=== PATIENT | female | born 1975 | race Caucasian/White ===

== ENCOUNTER 2020-01-05 15:02 | Outpatient (CLI) | payer OTHER, SELFPAY ==
[2020-01-05 15:51] LABS: Alanine Aminotransferase 27 U/L (4-35); Albumin Level 4.7 g/dL (3.5-5.1); Alkaline Phosphatase 71 U/L (38-126); Aspartate Amino Transferase 23 U/L (14-36); Bilirubin,Total 0.5 mg/dL (0.2-1.3); Blood Urea Nitrogen 13 mg/dL (7-17); Calcium 10.1 mg/dL (8.4-10.2); Carbon Dioxide 27 mmol/L (22-30); Chloride 99 mmol/L (98-107); Cholesterol 157 mg/dL (0-200); Estimated Glomerular Filt Rate > 60; Glucose 80 mg/dL (65-105); HDL Direct 50 mg/dL; Potassium 4.3 mmol/L (3.4-5.0); Sodium 137 mmol/L (137-145); Triglycerides 98 mg/dL (<150)
[2020-01-05 16:01] LABS: LDL Cholesterol Direct 88 mg/dL
[2020-01-05 17:08] LABS: MALB Creatinine Ratio < 3.1 mg/g (0-30); Microalbumin Urine Random < 6.0 mg/L (0-16.7)
== END 2020-01-05 15:03 | disposition home or self-care (01) ==
PROVIDERS: PCP Internal Medicine; Visit Provider Physician Assistant
DX: E78.5 Hyperlipidemia, unspecified (principal); E03.9 Hypothyroidism, unspecified; E10.65 Type 1 diabetes mellitus with hyperglycemia
CPT/HCPCS: 36415; 80053; 80061; 82043

== ENCOUNTER 2020-09-12 15:50 | Outpatient (CLI) | payer OTHER, SELFPAY ==
[2020-09-12 18:04] LABS: Free T4 Free Thyroxine 0.88 ng/mL (0.78-2.19)
== END 2020-09-12 15:51 | disposition home or self-care (01) ==
LOC: ANHLAB 15:52
PROVIDERS: PCP Family Medicine; Visit Provider Physician Assistant
DX: E03.9 Hypothyroidism, unspecified (principal)
CPT/HCPCS: 36415; 84439; 84443

== ENCOUNTER 2020-11-15 16:02 | Emergency (ER) | payer OTHER, SELFPAY ==
[2020-11-15 16:18] VITALS: BP 104/57; PULSE 79; RESP 16; TEMP 35.9; O2SAT 99
--- NOTE | 2020-11-15 16:40 | ED.FEMALEGU ---
HPI - Female Genitourinary General Chief complaint: Urogenital-Female Stated complaint: BURNING URINATION Time Seen by Provider: 11/15/20 16:32 Source: patient and RN notes reviewed Mode of arrival: ambulatory Limitations: no limitations History of Present Illness HPI Narrative: Patient presents today complaining of dysuria, hematuria, frequency, urgency, and lower abdominal cramping x4 days. Denies fever, back pain. Reports history of frequent UTIs, but states she has not had an infection for approximately a year. She has tried no fmjl-[id number] treatment prior to arrival. MD elicited complaint: dysuria Related Data Home Medications Medication Instructions Recorded Confirmed aspirin 81 mg tablet,delayed 81 mg PO DAILY 10/05/19 11/15/20 release fluoxetine 20 mg capsule 40 mg PO DAILY cap 10/05/19 11/15/20 gabapentin 400 mg capsule 400 mg PO QID 10/05/19 11/15/20 Calcium 600 1 tab-cap PO DAILY 11/30/19 11/15/20 ergocalciferol (vitamin D2) 50,000 unit PO WEEKLY 11/30/19 11/15/20 atorvastatin 20 mg tablet 20 mg PO QPM tablet 03/08/20 11/15/20 blood sugar diagnostic #10 each 03/08/20 09/12/20 subcutaneous insulin pump #1 each 03/08/20 09/12/20 insulin syringe-needle U-100 0.3 #10 each 09/12/20 09/12/20 mL 31 gauge x 04/08 yfnverjymitg-zgg-ftmw-FA-vit K 1 tablet PO DAILY 11/15/20 11/15/20 [Adults Multivitamin] ondansetron 8 mg PO Q8H PRN 11/15/20 11/15/20 Allergies Allergy/AdvReac Type Severity Reaction Status Date / Time fentanyl AdvReac Mild ITCHING Verified 11/15/20 16:17 WITH EPIDURAL FENTANYL DOSE Review of Systems Review of Systems: Narrative: CONSTITUTIONAL: Denies body aches, fever, chills, or sweats. EYES: Denies visual changes, redness, or discharge. ENT: Denies rhinorrhea, congestion, sore throat, or otalgia. CARDIOVASCULAR: Denies chest pain, palpitations, or edema. RESPIRATORY: Denies cough or dyspnea. GASTROINTESTINAL: Denies abdominal pain, nausea, vomiting, or diarrhea. GENITOURINARY:+ Dysuria, hematuria, frequency, urgency, lower abdominal cramping. SKIN: Denies rash, itching, or wounds. MUSCULOSKELETAL: Denies back pain, joint pain, or myalgia. NEUROLOGIC: Denies headache, numbness, tingling, or weakness. PSYCH: Denies depression or anxiety. [facility] Family History Family History Mother Family history of thyroid disease Depression Family history of kidney disease Family history of chronic obstructive pulmonary disease Family history of diabetes mellitus in first degree relative Hypertension Family history of elevated blood lipids Sibling Family history of thyroid disease Family history of kidney disease Family history of diabetes mellitus in first degree relative Father Family history of diabetes mellitus in first degree relative Grandparent Cerebrovascular accident Other Diabetes mellitus Family history of arthritis Family history of blood dyscrasia Family history of gout Family history of malignant neoplasm of male breast Social History Social History Smoking status: Former smoker Second hand tobacco smoke exposure: No Smoking end date: 11/24/08 Alcohol intake: never Gender identity (if verbalized by the patient): Female Comments At time of signature, I have reviewed and agree with nursing past medical, surgical, social and family history unless otherwise noted. Please see nursing chart for further information. There is no relevant family history pertinent to the presenting complaint Exam Narrative: Exam Narrative: GENERAL: Well-appearing, well-nourished, and in no acute distress. HEAD: Normocephalic, atraumatic. EYES: EOMI. No redness or drainage. Conjunctivae normal. ENT: Mucous membranes pink and moist. NECK: Normal AROM. CHEST: No respiratory distress. Clear to auscultation. HEART: Regular rate a
== END 2020-11-15 16:57 | disposition home or self-care (01) ==
PROVIDERS: Emergency Provider Nurse Practitioner; PCP Family Medicine
DX: N30.01 Acute cystitis with hematuria (principal); Z79.82 Long term (current) use of aspirin; Z79.4 Long term (current) use of insulin; Z87.891 Personal history of nicotine dependence; E78.00 Pure hypercholesterolemia, unspecified; I10 Essential (primary) hypertension; Z86.2 Personal history of diseases of the blood and blood-forming organs and certain disorders involving the immune mechanism; E10.40 Type 1 diabetes mellitus with diabetic neuropathy, unspecified
CPT/HCPCS: 81003; 87077; 87086; 87088; 87186; 99213; G0463

== ENCOUNTER 2021-06-13 15:14 | Outpatient (CLI) | payer OTHER, SELFPAY ==
[2021-06-13 17:00] LABS: Creatinine Urine 115.5 mg/dL
[2021-06-13 17:02] LABS: Anion Gap 8 mmol/L (8-16); Blood Urea Nitrogen 16 mg/dL (7-17); Calcium 9.9 mg/dL (8.4-10.2); Carbon Dioxide 30 mmol/L (22-30); Chloride 100 mmol/L (98-107); Estimated Glomerular Filt Rate > 60; Glucose 186 mg/dL (65-110); HDL Direct 62 mg/dL; Potassium 4.7 mmol/L (3.4-5.0); Sodium 138 mmol/L (137-145)
[2021-06-13 17:17] LABS: LDL Cholesterol Direct 88 mg/dL; MALB Creatinine Ratio < 5.2 mg/g (0-30); Microalbumin Urine Random < 6.0 mg/L (0-16.7)
[2021-06-16 07:25] LABS: C-Peptide <0.10 ng/mL (0.80-3.85)
== END 2021-06-13 15:15 | disposition home or self-care (01) ==
LOC: ANHWCLAB 15:15
PROVIDERS: PCP Family Medicine; Visit Provider Internal Medicine Endocrinology, Diabetes & Metabolism
DX: E03.9 Hypothyroidism, unspecified (principal); E10.65 Type 1 diabetes mellitus with hyperglycemia
CPT/HCPCS: 36415; 80048; 82043; 83718; 83721; 84439; 84443; 84681

== ENCOUNTER 2022-04-15 15:49 | Outpatient (CLI) | payer OTHER, SELFPAY ==
[2022-04-15 17:01] LABS: Anion Gap 8 mmol/L (8-16); Blood Urea Nitrogen 14 mg/dL (7-17); Calcium 9.2 mg/dL (8.4-10.2); Carbon Dioxide 27 mmol/L (22-30); Chloride 102 mmol/L (98-107); Estimated Glomerular Filt Rate > 60; Glucose 156 mg/dL (65-110); HDL Direct 58 mg/dL; Potassium 4.3 mmol/L (3.4-5.0); Sodium 137 mmol/L (137-145)
[2022-04-15 17:14] LABS: Creatinine Urine 230.2 mg/dL
[2022-04-15 17:17] LABS: MALB Creatinine Ratio 5.1 mg/g (0-30); Microalbumin Urine Random 11.8 mg/L (0-16.7)
[2022-04-15 17:20] LABS: LDL Cholesterol Direct 88 mg/dL
== END 2022-04-15 15:50 | disposition home or self-care (01) ==
LOC: ANHWCLAB 15:50
PROVIDERS: PCP Family Medicine; Visit Provider Internal Medicine Endocrinology, Diabetes & Metabolism
DX: E03.9 Hypothyroidism, unspecified (principal); E10.65 Type 1 diabetes mellitus with hyperglycemia; E78.5 Hyperlipidemia, unspecified; Z46.81 Encounter for fitting and adjustment of insulin pump; Z71.3 Dietary counseling and surveillance
CPT/HCPCS: 36415; 80048; 82043; 83718; 83721; 84443

== ENCOUNTER 2024-12-31 11:19 | Outpatient (CLI) | payer OTHER, SELFPAY ==
--- OUTSIDE RECORDS SUMMARY | 2024-12-31 11:54 | XMS_ITS | Patient Health Summary ---
Author Organization [facility] Address [address] [place] [address] Care Team Providers Care Operating System Programmer Name Role Phone Zia Medellin MD Primary Care Provider [phone] Note from [facility],non-owned Affiliates and Associated Physician Practices is amultiple site organization consisting of ambulatory clinics and hospital sitesin [place], [place], [place] and [place]. This disclosure is being madepursuant to the Care Everywhere program and may not contain all information available regarding this patient. Last updated 18.[facility] [employer] Allergies No known active allergies Medications * Be aware that medications may not be up to date on this document. Alwaysverify current medications with the patient. * atorvastatin (LIPITOR) 20 MG tablet(Started 02/15/2018) TK 1 T PO D 5 refills left * FLUoxetine (PROZAC) 20 MG capsule(Started 02/13/2018) TK 1 C PO QD 4 refills left * gabapentin (NEURONTIN) 400 MG capsule(Started 02/14/2018) 3 refills left * APIDRA vial(Started 02/09/2018) INJ 130-150 UNITS VIA INSULIN PUMP D * levothyroxine (SYNTHROID) 150 MCG tablet(Started 02/19/2018) TK 1 T PO D IN THE MORNING 1 refill left * lisinopril (PRINIVIL;ZESTRIL) 5 MG tablet(Started 02/15/2018) TK 1 T PO D 1 refill left * naproxen (NAPROSYN) 500 MG tablet(Started 02/07/2018) TK 1 T PO BID 5 refills left * betamethasone dipropionate 0.05 % lotion(Started 03/02/2018) Apply to affected area 2 times daily Apply to itching area on scalp and feet twice daily. 30 days supply. 1 refill remaining * hydrocortisone (HYTONE) 2.5 % cream(Started 03/02/2018) Apply to affected area 2 times daily as needed Apply next to nose twice daily as needed after wash with nizoral shampoo. 30 days supply. 1 refill remaining * betamethasone dipropionate 0.05 % lotion(Started 07/20/2018) Apply to itchy spots twice daily PRN. 30 days supply. Must be Fougera or [place]err[place] of [employer] [employer] or Taro 3 refills remaining * ketoconazole (NIZORAL) 2 % shampoo(Started 07/20/2018) Apply to wet hair daily. 30 days supply. Must be Perrigo or [facility] [employer] [facility] 11 refills remaining Active Problems No known active problems Social History Tobacco Use Types Packs/Day Years Used Date Smoking Tobacco: Former Smokeless Tobacco: Never Alcohol Use Standard Drinks/Week Comments No 0 (1 standard drink = 0.6 oz pur e alcohol) Sex and Gender Information Value Date Recorded Sex Assigned at Not on file Gender Identity Not on file Sexual Orientation Not on file Procedures * SD BIOPSY OF SKIN LESION(Performed 07/21/2018) Performed for Neoplasm of uncertain behavior of skin * DERMATOPATHOLOGY(Performed 07/20/2018) Performed for Neoplasm of uncertain behavior of skin * SD ALLERGY PATCH TESTS(Performed 07/13/2018) Performed for Allergic contact dermatitis, unspecified trigger * IMAGING/RADIOLOGY/XRAY RESULTS ORDER(Performed 01/02/2016) * MRI SHOULDER LEFT WO CONTRAST(Performed 12/26/2015) Performed for Left shoulder pain Results * SD BIOPSY OF SKIN LESION (07/21/2018 11:21 AM CDT) Narrative Colton Koo MD - 07/21/2018 11:21 AM CDT Simon Hernandes MD 07/21/2018 9:51 AM Risks, benefits and alternatives to shave biopsy were discussed with the patient. Verbal consent obtained. Location: Lower central back Skin prep: Alcohol Anesthesia: 1% lidocaine with epinephrine Hemostasis: Aluminum Chloride Dressing and wound care discussed. Patient agrees to phone call for results and message if not available. Simon Hernandes MD Dermatology Resident, PGY-2 07/21/2018 9:51 AM Colton Koo MD PROCEDURE/MINOR SURG ICAL ORDERABLES * DERMATOPATHOLOGY (07/20/2018 12:00 AM CDT) Case Report Dermatopathology Report Case: [id number] Authorizing Provider: Colton Koo MD Collected: 07/20/2018 12:00 AM Ordering Location: [facility] Received: 07/21/2018 07:56 AM Dermatology Pathologist: Jeanette Zhang MD Specimen: Skin, central lower back 1:34 PM CDT DERMATOPATHOLOGY LABORATORY Final Diagnosis Specimen A. SKIN, central lower back: INTRADERMAL MELANOCYTIC NEVUS WITH CONGENITAL FEATURES (D22.9) 1:34 PM CDT DERMATOPATHOLOGY LABORATORY Clinical History Nevus. 1:34 PM CDT DERMATOPATHOLOGY LABORATORY Gross Description Specimen A: Received is one formalin filled container labeled with the patient's name and designated central lower back. The specimen consists of a shave biopsy measuring [id number], bisected. Jar 0. 1:34 PM CDT DERMATOPATHOLOGY LABORATORY Microscopic Description Specimen A. SKIN, central lower back: There are nests of cytologically bland melanocytes within the dermis. Some of these melanocytes are concentrated around blood vessels and adnexal structures. 1:34 PM CDT DERMATOPATHOLOGY LABORATORY Disclaimer An external and internal positive and negative controls are appropriate for the histochemical, immunohistochemical and immunofluorescence stain(s) in this case (if any), except where stated explicitly. The performance characteristics of the stain(s) cited in this report were developed and its performance characteristic determined by the Dermatopathology Laboratory at [facility]. These tests need not be, and therefore are not, approved by the [place] Food and Drug Administration. The tests are used for clinical purposes. Billing Codes Specimen Charges Stain Charges 42693 1 1:34 PM CDT DERMATOPATHOLOGY LABORATORY Embedded Images 1:34 PM CDT DERMATOPATHOLOGY LABORATORY Pathology/Cytolog y TISSUE SPECIMEN FROM SKIN / Unknown 07/20/2018 07/21/2018 7:56 AM CDT Colton Koo MD LAB - PATHOLOGY/CYTO LOGY ORDERABLES DERMATOPATHOLOGY LABORATORY [facility] - Department of Dermatology [address] [place] [address], [facility] [phone] * SD ALLERGY PATCH TESTS (07/13/2018 3:54 PM CDT) Narrative Kortney García - 07/13/2018 3:54 PM CDT Kortney García 07/13/2018 3:54 PM Patient here today for patch testing per order Janiya Koo MD. Patch test(s) to be tested: (Series /Quantity) NACDG / 80 Cosmetic / 40 Gold / 1 Patches applied to patient as shown in Annotated Imaging. ARIC Chávez Colton Koo MD PROCEDURE/MINOR SURG ICAL ORDERABLES * IMAGING/RADIOLOGY/XRAY RESULTS ORDER (01/02/2016 9:54 PM PHYSICAL TESTING SUPERVISOR) Anatomical Region Laterality Modality Other Narrative 01/02/2016 9:54 PM PHYSICAL TESTING SUPERVISOR Ordered by an unspecified provider. Scanned Document IMAGING * MRI SHOULDER WO CONT LEFT (12/26/2015 2:01 PM PHYSICAL TESTING SUPERVISOR) Anatomical Region Laterality Modality Upper Extremity Magnetic Resonan ce 12/26/2015 3:09 PM PHYSICAL TESTING SUPERVISOR Impressions 12/26/2015 3:20 PM PHYSICAL TESTING SUPERVISOR Supraspinatus and subscapularis tendinitis/tendinosis with superimposed high-grade partial thickness tearing of the distal supraspinatus tendon at its insertion. Small joint effusion and subacromial/subdeltoid bursal effusion. Edited by Genie Aburto on 12/26/2015 3:20 PM Narrative 12/26/2015 3:20 PM PHYSICAL TESTING SUPERVISOR MRI LEFT SHOULDER WITHOUT CONTRAST Indication: Left shoulder pain Technique: Multiplanar, multisequence magnetic resonance imaging of the left shoulder performed without contrast Comparison: None Findings: The study is limited by patient motion. Within this limitation, there is tendinitis/tendinosis involving the supraspinatus and subscapularis tendons with superimposed high-grade partial thickness tearing of the distal supraspinatus tendon near its insertion. A retracted full-thickness tear is not identified. There is a small joint effusion and small subacromial/subdeltoid bursal effusion. Infraspinatus and teres minor tendons are intact and unremarkable. There is tendinitis/tendinosis affecting the long of the biceps tendon which is appropriately positioned in the bicipital groove. Significant hypertrophic or erosive degenerative changes are not identified at the glenohumeral joint or the acromioclavicular joint. There is no fracture, dislocation or marrow infiltrative process. There is degenerative signal within the cartilaginous labrum. A discrete labral tear is not identified. Procedure Note Fredi Lopez MD - 12/26/2015 MRI LEFT SHOULDER WITHOUT CONTRAST Indication: Left shoulder pain Technique: Multiplanar, multisequence magnetic resonance imaging of the left shoulder performed without contrast Comparison: None Findings: The study is limited by patient motion. Within this limitation, there is tendinitis/tendinosis involving the supraspinatus and subscapularis tendons with superimposed high-grade partial thickness tearing of the distal supraspinatus tendon near its insertion. A retracted full-thickness tear is not identified. There is a small joint effusion and small subacromial/subdeltoid bursal effusion. Infraspinatus and teres minor tendons are intact and unremarkable. There is tendinitis/tendinosis affecting the long of the biceps tendon which is appropriately positioned in the bicipital groove. Significant hypertrophic or erosive degenerative changes are not identified at the glenohumeral joint or the acromioclavicular joint. There is no fracture, dislocation or marrow infiltrative process. There is degenerative signal within the cartilaginous labrum. A discrete labral tear is not identified. IMPRESSION Supraspinatus and subscapularis tendinitis/tendinosis with superimposed high-grade partial thickness tearing of the distal supraspinatus tendon at its insertion. Small joint effusion and subacromial/subdeltoid bursal effusion. Edited by Genie Aburto on 12/26/2015 3:20 PM Charanjit Yanez MD MR ORDERABLES Care Teams Operating System Programmer Relationship Specialty Start Date End Date Zia Medellin MD [address] [place] [address] [address] [place] [id number] PCP - General Family Medicine 12/26/15
--- OUTSIDE RECORDS SUMMARY | 2024-12-31 11:54 | XMS_ITS | Continuity of Care Document ---
Author Organization [place] [facility], [facility] [place] Address [address] [place] [address] Care Team Providers Care Digital Sales Planner Name Role Phone HOOD CAMARA Primary Care Provider HOOD CAMARA Referring Provider Assessment Encounter Date Assessment Date Assessment LastModified by Organization Details LastModified Time 12/31/2024 12/31/2024 The patient has right shoulder pain she does have significant AC joint arthrosis with subacromial spurring likely causing impingement subacromial space may be mildly narrowed. We talked about this in detail today she states she may have a diagnosis of a previous rotator cuff tear she is going to get us that report and films if possible we will take a look at that when she gets that to us. In the meantime we are going to get her started with a course of physical therapy, she declined cortisone and oral prednisone because of her blood sugar issues we are somewhat limited we can do with that. We will get her started on naproxen 500 mg b.i.d. with food I will see her in 1 month to see how she is doing if her symptoms continue to be significant an MRI scan may be indicated we will see what the other old results show as well. She voiced understanding and agreed with the above plan she will call for any further problems difficulties or questions. [email or web address] Not available 12/31/2024 12:01:11 Plan of Treatment Reminders Order Date Submit Date Provider Last Modified By Organization Details Last Modified Time Details Appointments Any 5 2024 10:30A M GIOVANNA Pollard Not available Not available Not available Any 15 2024 01:30P Sharad Taveras MD Not available Not available Not available Any 5 2024 02:30P M GIOVANNA Pollard Not available Not available Not available Follow Up 30 2024 02:30P M GIOVANNA Knxo Not available Not available Not available Lab None recorded. Referral physical therapist referral - Please contact patient to schedule 2024 025 [facility] [place], [address], [place], [address], 12/31/2024 12:25:24 Procedures None recorded. Surgeries None recorded. Imaging XR, shoulder 2024 025 [email or web address] [facility] [place], [address], [place], [address], 12/31/2024 12:03:30 Medication Orders naproxen 500 mg tablet 2024 025 [email or web address] [id number], [address], [place], [id number], 12/31/2024 12:03:30 Patient TargetsNo targets recorded. Patient InstructionsNo instructions recorded. Reason for Referral Physical Therapist Referral for Pain of right shoulder joint Please contact patient to schedule Referring Physician: Allan Morales, Orthopedic Surgery, Encounter Date: 12/31/2024 Results Created Date Observation Date Name Description Value Unit Range Abnormal Flag Note LastModifiedBy Organization Detail LastModifiedTime 12/31/19 25 XR, shoul annemarie No observ ation record ed. [email or web address] [facility] [place] [address], [place], [address], 12/31/2024 12:01:57 Result Notes None recorded. Problems Name Problem SNOMED Code Status Onset Date Resolution Date Notes Provider Name and Address Organization Details Recorded Time Hypertensi ve disorder 15556044 Active Not Available [facility] 01:36:26 Neuropathy 718549948 Active Not Available [facility] 4 01:36:26 Menorrhagi a 482476064 Active Not Available [facility] 4 01:36:26 Hypothyroi dism 38143380 Active Not Available [facility] 4 01:36:26 Tinea capitis 4073559 Active Not Available [facility] 4 01:36:27 Hyperlipid emia 10649713 Active Not Available [facility] 4 01:36:27 Diabetes mellitus 24723146 Active Not Available [facility] 4 01:36:27 Mixed anxiety and depressive disorder 238841500 Active 2022 Not Available [facility] 4 01:36:26 Vitamin D below reference range 442161303 Active 2023 GIOVANNA Knox [address], [place], [address] , [facility] 4 16:01:39 Periodic limb movement disorder 490928477 Active 2023 Gerard Taveras MD [address], [place], [address] , [facility] [facility] 4 11:54:45 Obstructiv e sleep apnea syndrome 31603418 Active 2023 Gerard Taveras MD [address], [address], [place], [address] , [employer] [facility] 4 11:55:27 Iron deficiency 98728982 Active 2023 Gerard Taveras MD [address], [place], [address] , [employer] [facility] 4 15:04:09 Vitamin B12 deficiency (non anemic) 33045949 Active 2023 Gerard Taveras MD [address], [place], [address] , [facility] 4 15:04:18 Rupture of rotator cuff of right shoulder 8863331981391 9103 Active 2024 GIOVANNA Knox [address], [place], [address] , [facility] [employer] [facility] [employer] [facility] 5 16:24:06 Nausea 184440468 Active 2024 GIOVANNA Knox [address], [address], [place], [address] , [facility] [employer] [facility] 5 16:24:48 Pain of right shoulder joint 8561066340627 9100 Active 2024 Ingrid Hebert CNA null, [facility] [employer] [facility] 5 11:32:47 Osteoarthr itis of right acromiocla vicular joint 9701230426178 104 Active 2024 GIOVANNA Pollard [address], [address], [place], [address] , [facility] [employer] [facility] 5 12:02:13 Impingemen t syndrome of right shoulder region 8904274983142 02 Active 2024 GIOVANNA Pollard [address], [place], [address] , [facility] [employer] [facility] [employer] [facility] 5 12:02:20 Tendinitis of right rotator cuff 9997507320552 9104 Active 2024 GIOVANNA Pollard [address] [place] [address], [place], [address] , [facility] [employer] [facility] [employer] [facility] 5 12:02:33 Notes:Medical History: Anxie ty/Depression Tinea capitis Rhinitis Bruxism Obesity with severe OSHS, HI = 31, 03/23/24, on CPAP c/o IVRC Hypothyroidism Hyperlipidemia Hypertension T2DM with neuropathy PLMD Iron deficiency Vit B12 deficiency Vit D deficiency Low back pain Procedure History: T&A 1981 Appendectomy 1989 1997 Tubal ligation 1997 Left CTS release surgery 2004 Right CTS release surgery 2006 Bilateral knee arthroscopies 2010 Cholecystectomy 2018 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 Procedures Surgical History Date Name Laterality Status Provider Name and Address Organization Details Recorded Time Appendectomy completed Jesica Ureña MA [facility] [employer] 12/24/2023 15:41:00 Carpal tunnel surgery completed Jesica Ureña MA [facility] 12/24/2023 15:41:11 Gallbladder Surgery completed Jesica Ureña MA [facility] 12/24/2023 15:41:24 Tubal Ligation completed Jesica Ureña MA [facility] 12/24/2023 15:41:31 section completed Cornelius Ureña MA [facility] 12/24/2023 15:41:48 Knee arthroscopy/surge ry completed Jesica Ureña MA [facility] 12/24/2023 15:42:09 Imaging Results Imaging Date Name Status LastModified by Organiz ation Details LastModified Time 12/31/2024 XR, shoulder completed [email or web address] [facility] [place] [address], [place], [address], 12/31/2024 12:01:57 Procedure Notes None recorded. Medical Equipment None Reported. Allergies No known drug allergies Medications Name Sig Start Date Stop Date Status Note LastModified by Organization Details LastModified Time fluoxetine 40 mg capsule TAKE 1 CAPSULE BY MOUTH EVERY DAY active Not Available Not Available No t Available amoxicillin 500 mg capsule TAKE 1 THREE TIMES DAILY UNTILL GONE 12/28 completed Not Available Not Available Not Available Mirena 21 mcg/24 hr (up to 8 years) 52 mg intrauterin e device 12/24 completed Not Available Not Available Not Available fluconazole 100 mg tablet TK 1 T PO QD FOR 5 DAYS 12/10 completed Not Available Not Available Not Available clotrimazol e 10 mg isael Take 1 tablet 4 times a day by oral route. active Not Available Not Available No t Available promethazin e-DM 6.25 mg-15 mg/5 mL oral syrup TK 5 ML PO Q 4 H PRF COUGH 07/13 completed Not Available Not Available Not Available venlafaxine ER 75 mg capsule,ext ended release 24 hr TK ONE C PO QD active Not Available Not Available No t Available atorvastati n 20 mg tablet TAKE 1 TABLET BY MOUTH EVERY EVENING active Not Available Not Available No t Available ketoconazol e 2 % shampoo APPLY TO THE AFFECTED AREA(S), LATHER, LEAVE IN PLACE FOR 5 MINUTES, AND THEN RINSE OFF WITH WATER BY TOPICAL ROUTE ONCE DAILY active Not Available Not Available No t Available Vitamin C 500 mg tablet TAKE 1 TABLET BY MOUTH TWICE DAILY. active Not Available Not Available No t Available cetirizine 10 mg tablet TAKE 1 TABLET BY MOUTH ONCE DAILY 01/21 completed Not Available Not Available Not Available azithromyci n 250 mg tablet TAKE 2 TABLETS BY MOUTH FOR 1 DAY THEN TAKE 1 TABLET BY MOUTH DAILY FOR 4 DAYS 12/24 completed Not Available Not Available Not Available ibuprofen 800 mg tablet TAKE 1 TABLET BY MOUTH EVERY 8 HOURS WITH FOOD NEEDED 12/28 completed Not Available Not Available Not Available Glucagon Emergency Kit 1 mg solution for injection INJECT 1MG UNDER THE SKIN ONCE 12/25 completed Not Available Not Available Not Available fluconazole 150 mg tablet TAKE 1 TABLET BY MOUTH 1 TIME 12/25 completed Not Available Not Available Not Available benzonatate 200 mg capsule TAKE 1 CAPSULE BY MOUTH THREE TIMES DAILY NEEDED FOR COUGH 12/24 completed Not Available Not Available Not Available hydrocodone 5 mg-acetamin ophen 325 mg tablet TK 1 TO 2 TS PO Q 6 H PRN P 07/13 completed Not Available Not Available Not Available hydrocortis one 1 % topical ointment APPLY AA BID 08/24 completed Not Available Not Available Not Available ondansetron HCl 8 mg tablet TAKE 1 TABLET BY MOUTH EVERY 8 HOURS NEEDED 01/11 completed Not Available Not Available Not Available fluconazole 200 mg tablet 05/11 completed Not Available Not Available Not Available ondansetron HCl 4 mg tablet active Not Available Not Available Not Available gabapentin 400 mg capsule TK 1 C PO QAM AND 1 C AT NOON AND 2 CS QPM active Not Available Not Available No t Available clobetasol 0.05 % topical cream APPLY A THIN LAYER TO THE AFFECTED AREA(S) BY TOPICAL ROUTE 2 TIMES PER DAY 12/25 completed Not Available Not Available Not Available cyanocobala min (vit B-12) 1,000 mcg tablet Take 1 tablet 3 times a week by oral route. 2023 active Not Available Not Available Not Avai lable Accu-Chek Softclix Lancets U 1 LANCET TO CHECK BLOOD SUGAR QID 12/25 completed Not Available Not Available Not Available penicillin V potassium 500 mg tablet TAKE 1 TABLET BY MOUTH FOUR TIMES DAILY FOR 10 DAYS 09/27 completed Not Available Not Available Not Available lidocaine HCl 2 % mucosal jelly Take 200 mg by mucous route. 07/13 completed Not Available Not Available Not Available acetaminoph en 300 mg-codeine 30 mg tablet TAKE 1 TABLET BY MOUTH EVERY 4-6 HOURS NEEDED FOR PAIN 12/28 completed Not Available Not Available Not Available levofloxaci n 250 mg tablet Take 1 tablet every day by oral route for 5 days. active Not Available Not Available No t Available ciprofloxac in 500 mg tablet TAKE 1 TABLET BY MOUTH EVERY 12 HOURS FOR 5 DAYS 12/25 completed Not Available Not Available Not Available sulfamethox azole 800 mg-trimetho prim 160 mg tablet TAKE 1 TABLET BY MOUTH TWICE DAILY FOR 10 DAYS 05/15 completed Not Available Not Available Not Available tramadol 50 mg tablet TAKE 1 TABLET BY MOUTH EVERY 8 HOURS NEEDED 12/28 completed Not Available Not Available Not Available triamcinolo ne acetonide 0.1 % topical cream APPLY EXTERNALL Y TO THE AFFECTED AREA TWICE DAILY 12/25 completed Not Available Not Available Not Available ondansetron 8 mg disintegrat ing tablet Place 1 tablet twice a day by transling ual route for 30 days, for nausea. 2024 active Not Available Not Available Not Avai lable amoxicillin 875 mg tablet TAKE 1 TABLET BY MOUTH THREE TIMES DAILY 12/24 completed Not Available Not Available Not Available ciprofloxac in 0.3 % eye drops INSTILL 1 DROP IN AFFECTED EYE(S) EVERY 4 HOURS FOR 7 DAYS. ADMINISTE R WHILE AWAKE 12/24 completed Not Available Not Available Not Available benzonatate 100 mg capsule TK 1 TO 2 CS PO TID PRN active Not Available Not Available No t Available cephalexin 500 mg capsule TAKE 1 CAPSULE BY MOUTH TWICE DAILY 12/24 completed Not Available Not Available Not Available triamcinolo ne acetonide 0.1 % topical ointment APPLY A THIN LAYER TO THE AFFECTED ARE BY TOPICAL ROUTE TWICE DAILY 07/11 completed Not Available Not Available Not Available nystatin 100,000 unit/gram topical cream APPLY EXTERNALL Y TO THE AFFECTED AREA TWICE DAILY 05/15 completed Not Available Not Available Not Available clotrimazol e-betametha sone 1 %-0.05 % topical cream APPLY EXTERNALL Y TO THE AFFECTED AND SURROUNDI NG AREAS TWICE DAILY IN THE MORNING AND IN THE EVENING FOR 2 WEEKS 12/25 completed Not Available Not Available Not Available misoprostol 200 mcg tablet Take 2 tablet(s) ONCE by oral route 2 hours prior to procedure active Not Available Not Available No t Available hyoscyamine 0.125 mg sublingual tablet DISSOLVE 2 TABLETS UNDER THE TONGUE EVERY 4 TO 6 HOURS NEEDED 12/24 completed Not Available Not Available Not Available promethazin e 25 mg tablet active Not Available Not Available Not Available polymyxin B sulfate 10,000 unit-trimet hoprim 1 mg/mL eye drops INSTILL 1 DROP IN LEFT EYE EVERY 3 HOURS FOR 7 DAYS 12/24 completed Not Available Not Available Not Available levothyroxi ne 150 mcg tablet TAKE 1 TABLET BY MOUTH DAILY active Not Available Not Available No t Available gabapentin 300 mg capsule TK 1 C PO QID active Not Available Not Available No t Available diclofenac sodium 75 mg tablet,dionte yed release TK 1 T PO BID WITH MEALS 07/13 completed Not Available Not Available Not Available hydrocortis one 2.5 % topical cream MICHAEL AA NEXT TO NOSE BID PRN AFTER WASHING WITH NIZORAL SHAMPOO 07/13 completed Not Available Not Available Not Available insulin syringe U-100 with needle 1 mL 31 gauge x /16 01/11 completed Not Available Not Available Not Available lisinopril 5 mg tablet TK 1 T PO D 12/24 completed Not Available Not Available Not Available mupirocin 2 % topical ointment APPLY ON EARS THREE TIMES DAILY FOR 10 DAYS 12/24 completed Not Available Not Available Not Available ergocalcife rol (vitamin D2) 1,250 mcg (50,000 unit) capsule TAKE 1 CAPSULE BY MOUTH EVERY WEEK 12/24 completed Not Available Not Available Not Available fluocinolon e 0.01 % topical solution APPLY TO AFFECTED AREA OF SCALP TOPICALLY TWICE DAILY 07/11 completed Not Available Not Available Not Available insulin lispro (U-100) 100 unit/mL subcutaneou s solution INJECT 150 UNITS TO 170 UNITS UNDER THE SKIN VIA INSULIN PUMP DAILY active Not Available Not Available No t Available ibuprofen 600 mg tablet 05/04 completed Not Available Not Available Not Available fluocinonid e 0.05 % topical solution APPLY AND LATHER TO SCALP AT BEDTIME THEN WASH HAIR IN MORNING. USE DAILY FOR A WEEK FOR FLARES THEN USE 2 TO 3 TIMES WEEKLY active Not Available Not Available No t Available levofloxaci n 500 mg tablet Take 1 tablet every 24 hours by oral route for 10 days. 07/13 completed Not Available Not Available Not Available albuterol sulfate HFA 90 mcg/actuati on aerosol inhaler INHALE 1 TO 2 PUFFS BY MOUTH EVERY 4 TO 6 HOURS NEEDED FOR WHEEZING OR SHORTNESS OF BREATH 12/24 completed Not Available Not Available Not Available ondansetron 4 mg disintegrat ing tablet active Not Available Not Available N ot Available fluoxetine 20 mg capsule TAKE 1 CAPSULE BY MOUTH EVERY DAY 08/24 completed Not Available Not Available Not Available metformin ER 500 mg tablet,exte nded release 24 hr TK 1 T PO BID 12/25 completed Not Available Not Available Not Available betamethaso ne dipropionat e 0.05 % lotion MICHAEL TO ITCHING AREA ON SCALP AND FEET BID 07/13 completed Not Available Not Available Not Available lisinopril 2.5 mg tablet 08/16 completed Not Available Not Available Not Available naproxen 500 mg tablet TAKE 1 TABLET BY MOUTH TWICE DAILY 2024 active Not Available Not Available Not Avai lable spironolact one 50 mg tablet TAKE 1 TABLET BY MOUTH EVERY DAY 12/25 completed Not Available Not Available Not Available amoxicillin 875 mg-potassiu m clavulanate 125 mg tablet TAKE 1 TABLET BY MOUTH EVERY 12 HOURS FOR 10 DAYS 10/27 completed Not Available Not Available Not Available azithromyci n 500 mg tablet TK 1 C PO QD active Not Available Not Available No t Available Asprin Ec Low Dose 81 mg tablet,dionte yed release Take 1 tablet every day by oral route. 12/24 completed Not Available Not Available Not Available nitrofurant oin monohydrate /macrocryst als 100 mg capsule TAKE 1 CAPSULE BY MOUTH TWICE DAILY FOR 5 DAYS 05/11 completed Not Available Not Available Not Available Calcium 600 + D(3) 600 mg-5 mcg (200 unit) tablet TAKE 2 TABLETS BY MOUTH EVERY DAY 12/24 completed Not Available Not Available Not Available diazepam 5 mg-7.5 mg-10 mg rectal kit set syringes to 10mg will administe r in office 07/13 completed Not Available Not Available Not Available chlorhexidi ne gluconate 0.12 % mouthwash RINSE WITH 10 ML TWICE DAILY AFTER BRUSHING FOR ONE WEEK 07/28 completed Not Available Not Available Not Available diclofenac sodium 1 po bid with meals 12/24 completed Not Available Not Available Not Available Humalog U-100 Insulin 2012 active Not Available Not Available Not Avai lable Calcium 500 + D 12/24 completed Not Available Not Available Not Available hydrocodone 7.5 mg-acetamin ophen 300 mg tablet TAKE 1 TABLET BY MOUTH EVERY 6 HOURS NEEDED FOR PAIN 12/25 completed Not Available Not Available Not Available OneTouch UltraMini kit USE UTD 12/25 completed Not Available Not Available Not Available Apidra U-100 Insulin 100 unit/mL subcutaneou s solution INJECT 180 TO 200 UNITS VIA INSULIN PUMP QD 07/13 completed Not Available Not Available Not Available FeroSul 325 mg (65 mg iron) tablet TAKE 1 TABLET BY MOUTH TWICE DAILY. active Not Available Not Available No t Available levothyroxi ne 150 mcg capsule Take 1 capsule every day by oral route. 2012 active Not Available Not Available Not Avai lable Easy Touch Lancing Device 12/25 completed Not Available Not Available Not Available Contour Next Test Strips USE TO CHECK BLOOD SUGAR QID 12/25 completed Not Available Not Available Not Available Contour Next Meter USE TID 12/25 completed Not Available Not Available Not Available Easy Touch Twist Lancets 28 gauge 12/25 completed Not Available Not Available Not Available Fluarix Quad 2596-0731 (PF) 60 mcg (15 mcg x 4)/0.5 mL IM syringe ADM 0.5ML UTD active Not Available Not Available No t Available Trulicity 1.5 mg/0.5 mL subcutaneou s pen injector active Not Available Not Available Not Available Trulicity 0.75 mg/0.5 mL subcutaneou s pen injector active Not Available Not Available Not Available Dexcom G6 Sensor device REPLACE SENSOR EVERY 10 DAYS active Not Available Not Available No t Available Dexcom G6 Grey Roll Worker USE TO CHECK BLOOD SUGAR 01/11 completed Not Available Not Available Not Available Dexcom G6 Transmitter device CHANGE EVERY 90 DAYS active Not Available Not Available No t Available Omnipod Dash Pods (Gen 4) subcutaneou s cartridge CHANGE POD EVERY 2 DAYS 01/11 completed Not Available Not Available Not Available Baqsimi 3 mg/actuatio n nasal spray USE 3 MG INTRANASA L ONCE A SINGLE DOSE 10/27 completed Not Available Not Available Not Available Glucagon (HCl) Emergency Kit 1 mg solution for injection INJECT 1 MG UNDER THE SKIN ONCE DIRECTED active Not Available Not Available No t Available Gvoke HypoPen 2-Pack 1 mg/0.2 mL subcutaneou s auto-inject or 12/24 completed Not Available Not Available Not Available Omnipod 5 G6 Pods (Gen 5) subcutaneou s cartridge USE DIRECTED AND CHANGE POD EVERY 1 AND 1/2 DAYS active Not Available Not Available No t Available Mounjaro 2.5 mg/0.5 mL subcutaneou s pen injector Inject 2.5 mg every week by subcutane ous route for 30 days. 01/21 completed Not Available Not Available Not Available Omnipod 5 G6-G7 Pods (Gen 5) subcutaneou s cartridge CHANGE EVERY 1.5 DAYS active Not Available Not Available No t Available Vitals Date Recorded Body height Body mass index (BMI) Body weight Provider Name and Address Organization Details Last Updated DateTime 12/31/2024 162.56 cm 50.6 kg/m2 505147.75 g Ingrid Hebert CNA [facility] 12/31/2024 11:30:14 Social History Question Answer Notes LastModified by Organizat ion Details LastModified Time Tobacco Smoking Status Former Smoker HAIDER Mota, [facility] 12/24/2023 15:40:36 What Is Your Level Of Alcohol Consumption? None [email or web address] Information not available 12/24/2023 What Is Your Level Of Caffeine Consumption? Occasional [email or web address] Information not available 12/24/2023 In The 14 Days Before Symptom Onset, Have You Had Close Contact With A Laboratory-confi rmed COVID-19 While That Case Was Ill? No Information not available 01/21/2024 In The 14 Days Before Symptom Onset, Have You Had Close Contact With A Person Who Is Under Investigation For COVID-19 While That Person Was Ill? No Information not available 01/21/2024 Are You Currently Employed? No Information not available 04/07/2024 What Type Of Diet Are You Following? [email or web address] Information not available 01/21/2024 Do You Have An Electrostatic Air Filter? 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 11-15yearssincelast cigarette [email or web address] Information not available 12/24/2023 Do You Have A Humidifier? No Information not available 01/21/2024 Where Do You Live? SingleLevelHouse Information not available 01/21/2024 Are You Following A Low Salt Diet? No Information not available 01/21/2024 Do You Have Moisture Problems In Your Home? No Information not available 01/21/2024 What Was The Date Of Your Most Recent Tobacco Screening? 10/27/2024 Information not available 10/27/2024 How Many Children Do You Have? 2 Information not available 04/07/2024 What Is Your Current Pack Years? 20-29packyears [email or web address] Information not available 12/24/2023 Do You Have Any Pets? Yes Information not available 01/21/2024 What Is Your Relationship Status? Information not available 01/21/2024 Do You Use Your Seat Belt Or Car Seat Routinely? Yes [email or web address] Information not available 12/24/2023 Do You Have Smoke And Carbon Monoxide Detectors In Your Home? Yes Information not available 01/21/2024 Are You Passively Exposed To Smoke? No Information not available 01/21/2024 Do You Participate In Social Media? Yes [email or web address] Information not available 12/24/2023 Do You Feel Stressed (tense, Restless, Nervous, Or Anxious, Or Unable To Sleep At Night)? [id number] [email or web address] Information not available 12/24/2023 Do You Use Any Illicit Or Recreational Drugs? No [email or web address] Information not available 12/24/2023 Do You Use Sunscreen Routinely? No Information not available 01/21/2024 How Many Years Have You Smoked Tobacco? 24 [email or web address] Information not available 12/24/2023 Have You Recently Traveled Abroad? No Information not available 01/21/2024 Do You Have Any Dietary Restrictions? Yes Information not available 01/21/2024 Do You Or Have You Ever Used Any Other Forms Of Tobacco Or Nicotine? No [email or web address] Information not available 12/24/2023 Sex: Unknown Functional Status Question Answer Note LastModified by Organizat ion Details LastModified Time What is your exercise level? Occasional Information not available 01/21/2024 Mental Status None recorded. Family History Relationship Description Onset Age of this Age Resolved Age Notes LastModified by Organization Details LastModified Time Father Diabetes mellitus [email or web address] Not available 2023 15:24:02 Father Chronic lung disease [email or web address] Not available 2023 15:26:08 Father [place] [employer] is [email or web address] Not available 2023 16:34:23 Mother Diabetes mellitus [email or web address] Not available 2023 15:24:02 Mother Hypertensive disorder [email or web address] Not available 2023 15:24:18 Mother Heart disease [email or web address] Not available 2023 15:24:36 Mother Malignant tumor of pancreas [email or web address] Not available 2023 15:24:55 Mother Chronic obstructive pulmonary disease [email or web address] Not available 2023 15:25:36 Mother Chronic kidney disease [email or web address] Not available 2023 16:34:01 Mother Hypothyroidi sm [email or web address] Not available 2023 16:36:56 Mother Obstructive sleep apnea syndrome [email or web address] Not available 2023 12:12:04 Mother Dementia [email or web address] Not available 0 04/07/2024 12:12:41 Sister Diabetes mellitus [email or web address] Not available 2023 15:24:02 Sister Chronic kidney disease [email or web address] Not available 2023 16:34:07 Sister Hypothyroidi sm [email or web address] Not available 2023 16:37:06 Brother Diabetes mellitus [email or web address] Not available 2023 15:24:02 Brother Hyperthyroid ism [email or web address] Not available 2023 16:37:16 Paternal Grandmother Leukemia [email or web address] Not available 01/21 16:33:41 Maternal Grandmother Alzheimer's disease [email or web address] Not available 2023 16:34:38 Maternal Grandfather Cerebrovascu lar accident [email or web address] Not available 16:34:56 Paternal Uncle Transplant of kidney [email or web address] Not available 2023 16:35:37 Paternal Aunt Malignant tumor of breast [email or web address] Not available 2023 16:36:04 Maternal Aunt Diabetes mellitus [email or web address] Not available 2024 11:31:03 Medical History Condition Response ARTHRITIS Y DIABETES, TYPE Y ANEMIA/BLOOD DISORDER Y Gynecological HistoryNo gynecological history recorded. Obstetrics History GPAL:G 0 P 0 0 0 0 Past Encounters Encounter ID Performer Location Encounter Start Date Encounter Closed Date Diagnosis/Indication Diagnosis SNOMED-CT Code Diagnosis ICD10 Code Diagnosis Note [id number] Umm Llamas [facility] Jacques [address] [place] [address] 12/28/2024 15:45:01 12/28/2024 16:40:08 Rupture of rotator cuff of right shoulder [id number] 0016772 M75.101 [facility] [id number] R11.0 [id number] GIOVANNA Pollard [facility] [place] [address] [place] [address] 12/31/2024 11:07:31 12/31/2024 11:57:16 Pain of right shoulder joint [id number] 5042240 M25.511 Osteoarthr itis of right acromioclavicular joint [id number] 099562 M19.011 Impingemen t syndrome of right shoulder region [id number] 09042 M75.41 Tendinitis of right rotator cuff [id number] 0220634 M67.813 Health Concerns Section Related Observation LastModified by Organization Lc ls LastModified Time None Recorded Concern Status LastModified by Organization Details LastModified Time None Recorded Payers Encounter Date Sequence Insurance Name Policy Number Policy Pulido Covered Member ID Pulido Member ID Guarantor Name 12/31/2024 1 [facility] DOS ON OR AFTER 21 (MEDICAID REPLACEMENT - HMO) Tari Ledesma [id number] Tari Ledesma Notes Date Note Type Note Provider Name and Address Organization Details Recorded Time 12/31/2024 text/html The patient is a 49-year-old female who presents with a chronic history of right shoulder issues. She states several years ago she had frozen shoulder and at some point, she can not remember the timeline. She also had an MRI scan done [facility] ordered by 1 of the orthopedic surgeons there and was told she had a rotator cuff tear. She states she did not go through with surgery because she was taking care of her sick mother. She did have a period where her shoulder is feeling a bit better with previous treatment. She states at 1 point she did have a shot of cortisone but this caused significant problems with her blood sugar so she wants to avoid steroids /cortisone injections. She has been taking Tylenol states her pain is about a 7 on a scale of 1-10. Lately despite conservative measures with activity modification and Tylenol her symptoms continue. She states she has pain with the extremes of motion and can not do anything too heavy or repetitive with the shoulder. She did not know the degree of the tearing of the rotator cuff that was noted on a previous MRI, I have asked her to get copies of that so we could take a look at that. In the meantime she comes in today to talk about treatment options for her right shoulder pain that radiates into the upper arm and is more severe with extremes of motion she also notes somewhat limited motion due to some stiffness and severe pain. She denies any effusion or swelling no erythema heat or other signs of infection. She has had no new trauma or injury to the right shoulder recently. New past medical history sheet was reviewed and signed on the intake sheet of today's date drug allergies current medications family social history previous surgical history 10 point review of systems was reviewed and discussed in detail today with the patient. The patient is diabetic and has had issues with her blood sugars chronically although recently her last A1c was 7.1. GIOVANNA Pollard [address], [facility] [address], [place], [address], [facility] [facility] 12/31/2024 12:03:27 OBGyn Episode No OBEpisode recorded.
--- OUTSIDE RECORDS SUMMARY | 2024-12-31 11:54 | XMS_ITS | Referral Summary ---
Author Organization [facility] [employer] Address [facility] [place] [address] Care Team Providers Care Monogram Maker Name Role Phone Zia Medellin MD Primary Care Provider [phone] Source Comments [facility] [employer],non-owned Affiliates and Associated Physician Practices is amultiple site organization consisting of ambulatory clinics and hospital sitesin [place], [place], [place] and [place]. This disclosure is being madepursuant to the Care Everywhere program and may not contain all information available regarding this patient. Last updated 18.[facility] [employer] Allergies No known active allergies Medications * Be aware that medications may not be up to date on this document. Alwaysverify current medications with the patient. Medication Sig Dispensed Refills Start Date End Date Status atorvastatin (LIPITOR) 20 MG tablet TK 1 T PO D 5 02/15/2018 Active FLUoxetine (PROZAC) 20 MG capsule TK 1 C PO QD 4 02/13/2018 Active gabapentin (NEURONTIN) 400 MG capsule 3 02/14/2018 Active APIDRA vial INJ 130-150 UNITS VIA INSULIN PUMP D 0 02/09/2018 Active levothyroxine (SYNTHROID) 150 MCG tablet TK 1 T PO D IN THE MORNING 1 02/19/2018 Active lisinopril (PRINIVIL;ZESTRIL) 5 MG tablet TK 1 T PO D 1 02/15/2018 Active naproxen (NAPROSYN) 500 MG tablet TK 1 T PO BID 5 02/07/2018 Active betamethasone dipropionate 0.05 % lotionIndications:Othe r seborrheic dermatitis Apply to affected area 2 times daily Apply to itching area on scalp and feet twice daily. 30 days supply. 40 mL 1 03/02/2018 Active hydrocortisone (HYTONE) 2.5 % creamIndications:Other seborrheic dermatitis Apply to affected area 2 times daily as needed Apply next to nose twice daily as needed after wash with nizoral shampoo. 30 days supply. 15 g 1 03/02/2018 Active betamethasone dipropionate 0.05 % lotionIndications:Efren rgic contact dermatitis due to other agents Apply to itchy spots twice daily PRN. 30 days supply. Must be Fougera or Perrigo of Physician Total Care or Taro 60 mL 3 07/20/2018 Active ketoconazole (NIZORAL) 2 % shampooIndications:Oth er seborrheic dermatitis Apply to wet hair daily. 30 days supply. Must be Perrigo or Physician Total Care 120 mL 11 07/20/2018 Active Active Problems No known active problems Social History Tobacco Use Types Packs/Day Years Used Date Smoking Tobacco: Former Smokeless Tobacco: Never Alcohol Use Standard Drinks/Week Comments No 0 (1 standard drink = 0.6 oz pur e alcohol) Sex and Gender Information Value Date Recorded Sex Assigned at Not on file Gender Identity Not on file Sexual Orientation Not on file Plan of Treatment Not on file Care Teams Monogram Maker Relationship Specialty Start Date End Date Zia Medellin MD [facility] [place] [address] PCP - General Family Medicine 12/26/15
--- OUTSIDE RECORDS SUMMARY | 2024-12-31 11:54 | XMS_ITS | Clinical Summary ---
Author Organization [facility] [employer] Address [facility] [place] [address] Care Team Providers Care Diving Board Assembler Name Role Phone Zia Medellin MD Primary Care Provider Source Comments [facility] [employer],non-owned Affiliates and Associated Physician Practices is amultiple site organization consisting of ambulatory clinics and hospital sitesin [place], [place], [place] and [place]. This disclosure is being madepursuant to the Care Everywhere program and may not contain all information available regarding this patient. Last updated 18.[facility] [employer] Allergies No known active allergies Medications * [...] Active Active Problems No known active problems Family History Medical History Relation Name Comments Asthma Neg Hx CVA Neg Hx Cancer - Breast Neg Hx Cancer - Other Neg Hx Cancer - Skin, Melanoma Neg Hx Cancer - Skin, Non Melanoma Neg Hx Eczema Neg Hx Hemophilia Neg Hx Psoriasis Neg Hx Social History Tobacco Use Types Packs/Day Years Used Date Smoking Tobacco: Former Smokeless Tobacco: Never Alcohol Use Standard Drinks/Week Comments No 0 (1 standard drink = 0.6 oz pur e alcohol) Sex and Gender Information Value Date Recorded Sex Assigned at Not on file Gender Identity Not on file Sexual Orientation Not on file Plan of Treatment Health Maintenance Due Date Last Done Comments COLOGUARD (AGES 45-75) - COL ON CA SCREENING 1975 COLON MONITORING 1975 COLONOSCOPY - COLON CA SCREENING 1975 CT COLONOGRAPHY - COLON CA SCREENING 1975 Colorectal Cancer Screening 1975 FIT - COLON CA SCREENING 1975 FLEX SIG - COLON CA SCREENING 1975 MAMMOGRAM 1975 PAP SMEAR 1975 HIV SCREENING 1990 HEPATITIS C SCREENING 03/15/1993 DTAP/TDAP/TD VACCINES (1 - Tdap) 1994 HEPATITIS B VACCINE (1 of 3 - 19+ 3-dose series) 1994 COVID-19 VACCINE (2023-2 5 season) 2024 INFLUENZA VACCINE (#1) 2024 DEPRESSION SCREENING 11/24/2024 ZOSTER VACCINE (1 of 2) 2025 HIB VACCINE Aged Out No longer eligi ble based on patient's age to complete this topic HPV VACCINE Aged Out No longer eligi ble based on patient's age to complete this topic MENINGOCOCCAL (Group B) VACCINE Aged Out No longer eligible based on patient's age to complete this topic MENINGOCOCCAL VACCINE Aged Out No logan erika eligible based on patient's age to complete this topic PNEUMOCOCCAL VACCINE Aged Out No long er eligible based on patient's age to complete this topic Care Teams Diving Board Assembler Relationship Specialty Start Date End Date Zia Medellin MD [address] [place] [address] [address] [place] [address] PCP - General Family Medicine 12/26/15
--- OUTSIDE RECORDS SUMMARY | 2024-12-31 11:55 | XMS_ITS | CONTINUITY OF CARE DOCUMENT ---
Author Name drake juan Address Unknown Organization [facility] Address [address] [place] [address] Phone [phone] Care Team Providers Care Study Manager Name Role Phone Moisés Abernathy MD Unavailable [phone] Moisés Abernathy MD Unavailable [phone] INSURANCE PROVIDERS Payer name Policy type / Coverage type [employer]a red republican [employer] [place] MEDICAID (2) Medicaid [id number]
--- OUTSIDE RECORDS SUMMARY | 2024-12-31 11:55 | XMS_ITS | Clinical Summary ---
Author Organization [facility] Address [address] [place] [address] Care Team Providers Care Line Assigner Name Role Phone Unavailable Primary Care Provider Unavailabl e Social History Tobacco Use Types Packs/Day Years Used Date Smoking Tobacco: Never Assessed Comments Unknown Sex and Gender Information Value Date Recorded Sex Assigned at Not on file Legal Sex Female 7:37 PM CDT Gender Identity Not on file Sexual Orientation Not on file Plan of Treatment Health Maintenance Due Date Last Done Comments Cervical Cancer Screening Pa p Smear (Age 30 to 64) Every 3 Years 1975 Colorectal Cancer Screening Colonoscopy (10 Years) 1975 Annual Physical 1978 Hepatitis C 1993 DTaP, Tdap and Td Vaccines ( 1 - Tdap) 1994 Hepatitis B Vaccines (1 of 3 - 19+ 3-dose series) 1994 Cervical Cancer Screening Pa p with HPV Testing (Age 30 to 64) Every 5 Years 2005 Cervical Cancer Screening with HPV 2005 Mammogram Screening 2015 COVID-19 Vaccine (2023-2 5 season) 2024 Influenza Adult (#1) 2024 Meningococcal B Vaccine Aged Out No l onger eligible based on patient's age to complete this topic Meningococcal Vaccine Aged Out No logan erika eligible based on patient's age to complete this topic Pneumococcal Vaccine: Pediat rics (0 to 5 Years) and At-Risk Patients (6 to 64 Years) Aged Out No longer eligible b ased on patient's age to complete this topic RSV Immunizations Under 20 Months Aged Out No longer eligible based on patient's age to complete this topic
[2024-12-31 12:14] LABS: Alanine Aminotransferase 29 U/L (6-35); Albumin Level 4.5 g/dL (3.5-5.1); Alkaline Phosphatase 86 U/L (38-126); Anion Gap 10 mmol/L (4-12); Aspartate Amino Transferase 23 U/L (14-36); Bilirubin,Total 0.6 mg/dL (0.2-1.3); Blood Urea Nitrogen 14 mg/dL (7-17); Calcium 9.8 mg/dL (8.4-10.2); Carbon Dioxide 30 mmol/L (22-30); Chloride 100 mmol/L (98-107); Cholesterol 157 mg/dL (0-200); Estimated Glomerular Filt Rate > 60; Glucose 145 mg/dL (65-110); HDL Direct 47 mg/dL; Potassium 4.2 mmol/L (3.4-5.0); Sodium 140 mmol/L (137-145); Triglycerides 124 mg/dL (<150)
[2024-12-31 12:20] LABS: Creatinine Urine 210.1 mg/dL
[2024-12-31 12:24] LABS: LDL Cholesterol Direct 86 mg/dL
[2024-12-31 12:24] LABS: Microalbumin Urine Random 8.5 mg/L (0-16.7)
[2024-12-31 12:51] LABS: Free T4 Free Thyroxine 1.18 ng/dL (0.78-2.19); Vitamin D 25 Hydroxy 38.7 ng/mL
== END 2024-12-31 11:20 | disposition home or self-care (01) ==
LOC: ANHLAB 11:20
PROVIDERS: PCP Physician Assistant; Visit Provider Nurse Practitioner Family
DX: E78.5 Hyperlipidemia, unspecified (principal); I10 Essential (primary) hypertension; E03.9 Hypothyroidism, unspecified; E11.40 Type 2 diabetes mellitus with diabetic neuropathy, unspecified; Z71.3 Dietary counseling and surveillance; R79.89 Other specified abnormal findings of blood chemistry; E88.810 Metabolic syndrome; Z46.81 Encounter for fitting and adjustment of insulin pump
CPT/HCPCS: 36415; 80053; 80061; 82043; 82306; 82607; 84439; 84443

== ENCOUNTER 2025-06-08 15:41 | Outpatient (CLI) | payer OTHER, SELFPAY ==
--- NOTE | ~2025-06-08 | US_ITS ---
US thyroid INDICATION: Dysphasia and enlarged thyroid. TECHNIQUE: Real-time sonographic images of the thyroid gland were obtained. COMPARISON: Comparison to multiple prior studies sequentially, with oldest reviewed study dated 05/07. FINDINGS: The right thyroid lobe measures 3.7 x 1.5 x 1.3 cm. The left thyroid lobe measures 4.4 x 1 x 1.5 cm. There is a cyst in the right lobe measuring 1 cm. In the left lobe there is a complex irre gular shaped hypoechoic mass which appears solid, wider than tall with irregular margins and no inter nal echogenic foci measuring 1.3 0.9 x 1 cm, TR 4. IMPRESSION: 1. Moderately suspicious left thyroid mass measuring 1.3 cm, TR 4. Recommend follow-up ultrasound in 12 months. Reviewed, dictated and finalized at location A. IMPRESSION: 1. Moderately suspicious left thyroid mass measuring 1.3 cm, TR 4. Recommend f ollow-up ultrasound in 12 months.
--- OUTSIDE RECORDS SUMMARY | 2025-06-08 15:44 | XMS_ITS | Clinical Summary ---
Author Organization [facility] Address [facility] [place] [address] Care Team Providers Care Steel Plate Caulker Name Role Phone Zia Medellin MD Primary Care Provider [phone] Source Comments [facility],non-owned Affiliates and Associated Physician Practices is amultiple site organization consisting of ambulatory clinics and hospital sitesin [place], [place], [place]. This disclosure is being madepursuant to the Care Everywhere program and may not contain all information available regarding this patient. Last updated 18.[facility] Allergies No known active allergies Medications * Be aware that medications may not be up to date on this document. Alwaysverify current medications with the patient. atorvastatin (LIPITOR) 20 MG tablet TK 1 T PO D 5 8 Active FLUoxetine (PROZAC) 20 MG capsule TK 1 C PO QD 4 8 Active gabapentin (NEURONTIN) 400 MG capsule 3 8 Active APIDRA vial INJ 130-150 UNITS VIA INSULIN PUMP D 0 8 Active levothyroxine (SYNTHROID) 150 MCG tablet TK 1 T PO D IN THE MORNING 1 8 Active lisinopril (PRINIVIL;ZESTRIL ) 5 MG tablet TK 1 T PO D 1 8 Active naproxen (NAPROSYN) 500 MG tablet TK 1 T PO BID 5 8 Active betamethasone dipropionate 0.05 % lotionIndications :Other seborrheic dermatitis Apply to affected area 2 times daily Apply to itching area on scalp and feet twice daily. 30 days supply. 40 mL 1 8 Active hydrocortisone (HYTONE) 2.5 % creamIndications: Other seborrheic dermatitis Apply to affected area 2 times daily as needed Apply next to nose twice daily as needed after wash with nizoral shampoo. 30 days supply. 15 g 1 8 Active betamethasone dipropionate 0.05 % lotionIndications :Allergic contact dermatitis due to other agents Apply to itchy spots twice daily PRN. 30 days supply. Must be Fougera or Perrigo of Physician Total Care or Taro 60 mL 3 8 Active ketoconazole (NIZORAL) 2 % shampooIndication s:Other seborrheic dermatitis Apply to wet hair daily. 30 days supply. 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 Gender Identity Not on file Sexual Orientation [...] - COLON CA SCREENING 1975 MAMMOGRAM 1975 HIV SCREENING 1990 HEPATITIS C SCREENING 03/15/1993 DTAP/TDAP/TD VACCINES (1 - Tdap) 1994 HEPATITIS B VACCINE (1 of 3 - 19+ 3-dose series) 1994 COVID-19 VACCINE (2023-2 5 season) 2024 DEPRESSION SCREENING 11/24/2024 PNEUMOCOCCAL VACCINE 50+ (1 of 1 - PCV) 2025 ZOSTER VACCINE (1 of 2) 2025 INFLUENZA VACCINE (#1) 2025 HIB VACCINE Aged Out No longer eligi ble based on patient's age to complete this topic HPV VACCINE Aged Out No longer eligi ble based on patient's age to complete this topic MENINGOCOCCAL (Group B) VACC INE SHARED DECISION-MAKING Aged Out No longer eligibl e based on patient's age to complete this topic MENINGOCOCCAL GROUPS A/C/Y/W VACCINE Aged Out No longer eligible b ased on patient's age to complete this topic Insurance [facility] Care Teams Steel Plate Caulker Relationship Specialty Start Date End Date Zia Medellin MD [facility] [place] [address] PCP - General Family Medicine 12/26/15
--- OUTSIDE RECORDS SUMMARY | 2025-06-08 15:45 | XMS_ITS | Clinical Summary ---
Author Organization [facility] Address [address] [place] [address] Care Team Providers Care Ice Seller Name Role Phone Unavailable Primary Care Provider [...] 2015 COVID-19 Vaccine (2023-2 5 season) 2024 Pneumococcal Vaccine: 50+ Ye ars (1 of 1 - PCV) 2025 Zoster Vaccines (1 of 2) 2025 Meningococcal B Vaccine Aged Out No l onger eligible based on patient's age to complete this topic Meningococcal Vaccine Aged Out No logan erika eligible based on patient's age to complete this topic RSV Immunizations Under 20 Months Aged Out No longer eligible based on patient's age to complete this topic
--- OUTSIDE RECORDS SUMMARY | 2025-06-08 15:45 | XMS_ITS | Data Portability ---
Author Organization [place] [facility], Main Office Address [address] [place] [address] Care Team Providers Care Field Care Advocate Name Role Phone ANT APODACA Primary Care Provider ANT APODACA Referring Provider Assessment Encounter Date Assessment Date Assessment LastModified by Organization Details LastModified Time 02/23/2025 02/23/2025 49-year-old female presents for evaluation of her right shoulder. She is a referral from [facility]. she reports several years of pain after a fall. She has pain with lifting overhead motions. She has trouble brushing her hair or putting on a purse strap. She has been taking Tylenol, naproxen, and using Voltaren. She has done a course of physical therapy without improvement. She currently rates her pain as 5/10. She has a history of diabetes with an unknown A1c but last check was over 7. She also has had previous reactions with her blood sugar 2 cortisone injections. She is right-hand dominant. She currently stays at home. Review of systems patient questionnaire. Physical exam: BMI 47.4. She has tenderness over the anterior lateral shoulder. She has range of motion 120/20/back pocket. She has 5- out of 5 rotator cuff strength with external rotation elevation. Positive Alexandro's. Positive Neer and Zamora. Positive Kanabec's. X-rays were reviewed, demonstrating no acute bony abnormality. MRI was reviewed, it is of poor diagnostic quality but demonstrates signal within the rotator cuff and also signal in the biceps tendon and at the AC joint She has rotator cuff tendinitis or partial tear, biceps tendinosis, AC arthrosis. She has failed anti-inflammator ies and physical therapy and can not get cortisone injections. I recommend that she follow-up with her PCP to get her diabetes under control and get her A1c level under 7. She should also work on weight loss. We discussed that both of these put her at higher risk of complications with surgery. In the meantime, we will switch her over to meloxicam and give her a home exercise program for the shoulder. We will see her back in 6-8 weeks, or sooner as needed. At that time, if her sugars are better on control and her A1c is at a good level, we can discuss surgery. She is in agreement with the plan. Not available 02/23/2025 15:11:33 04/27/2025 04/27/2025 50-year-old female presents for follow-up of her right shoulder. She reports having no changes but actually feeling worse. She has been doing home exercise program taking meloxicam. She has her A1c level down to around 7. BMI 47.4. She has tenderness over the anterior lateral shoulder. She has range of motion 120/20/back pocket. She has 5- out of 5 rotator cuff strength with external rotation elevation. Positive Alexandro's. Positive Neer and Zamora. Positive Kanabec's. MRI demonstrates partial articular sided rotator cuff tear, AC arthrosis, fluid around the biceps Given her failure conservative management and her inability to do cortisone injections because of flex her blood sugars, we discussed we can either continue conservative management, which she does not want, or proceed with surgery which would be a shoulder arthroscopy, debridement, biceps tenodesis, rotator cuff repair with patch, subacromial decompression, distal clavicle excision. She wanted to proceed with that and we discussed the rehab process as well as her increased risk of complications with her obesity and diabetes. Risks, benefits, and alternatives to surgery were discussed with the patient. Risks include but are not limited to pain, stiffness, infection, bleeding, blood clot, injury to other structures including nerves or blood vessels, need for future surgery, and anesthesia risks. We discussed the goal of surgery is to improve symptoms but there is no guarantee of improvement and it is possible the patient's condition is worse after surgery. Patient agreed and would like to proceed. Not available 04/27/2025 17:32:36 05/31/2025 05/31/2025 will update labs and if labs are wnl will sign surgical consent needs f/u [id number] with normal provider edna Not available 05/31/2025 14:38:49 06/01/2025 06/01/2025 HPI: 50 year old female presents for preop H&P for right shoulder arthroscopy, debridement, biceps tenodesis, rotator cuff repair patch, subacromial decompression, distal clavicle excision. She is experiencing right shoulder pain for several years. This is a result of a fall several years ago. Pain is aggravated by extreme motion and lifting overhead motions. She currently rates her pain as 3/10. Treatment has included anti-inflammator ies, tylenol, and physical therapy with minimal improvement. MRI demonstrates partial articular-sided rotator cuff tear, AC arthrosis, fluid around the biceps. Medications: Updated in chart Allergies: NKDA Medical Hx: diabetes mellitus (A1C 7.6% on 05/31/25) , hyperlipidemia, hypothyroidism, obstructive sleep apnea syndrome, eczema, high BMI, diabetic peripheral neuropathy, hypertension, B12 deficiency Surgical Hx: appendectomy, , carpal tunnel release, knee arthroscopy, Anesthesia Hx : No complications, woke u nauseous and itchy Tobacco Use : Denies Medical Clearance : PCP clearance. Medical clearance given 06/01/25. Physical Exam: General: Normal appearance. No acute distress. BMI 47.4 Inspection: No evidence of swelling, erythema, bruising or deformity. Palpation: Tenderness over the anterolateral shoulder ROM: Flexion: 100 Abduction: 90 ER: 30 IR: Back pocket Special Test: Positive Alexandro's. Positive Neer and Zamora. Positive Kanabec's Motor: 5/5 strength. Sensation: Sensation intact. Imaging: MRI demonstrates partial articular-sided rotator cuff tear, AC arthrosis, fluid around the biceps Assessment/Plan: Given her failure conservative management and her inability to do cortisone injections because of flex her blood sugars, we discussed we can either continue conservative management, which she does not want, or proceed with surgery which would be a shoulder arthroscopy, debridement, biceps tenodesis, rotator cuff repair with patch, subacromial decompression, distal clavicle excision. She wanted to proceed with that and we discussed the rehab process as well as her increased risk of complications with her obesity and diabetes. Risks, benefits, and alternatives to surgery were discussed with the patient. Risks include but are not limited to pain, stiffness, infection, bleeding, blood clot, injury to other structures including nerves or blood vessels, need for future surgery, and anesthesia risks. We discussed the goal of surgery is to improve symptoms but there is no guarantee of improvement and it is possible the patient's condition is worse after surgery. Patient agreed and would like to proceed. Told her I would discuss her A1C result of 7.6% with Dr.Zhu sandy Not available 06/02/2025 16:06:48 Plan of Treatment Reminders Order Date Submit Date Provider Last Modified By Organization Details Last Modified Time Details Appointments Surgery 2024 08:00A Sharad Mclaughlin MD Not available Not available Not available Post-Op 2024 02:30P Sharad Mclaughlin MD Not available Not available Not available Follow Up 2024 03:00P SHARRI Jaquez Not available Not available Not available Any 15 2024 02:00P Sharad Taveras MD Not available Not available Not available Any 2024 02:00P SHARRI Jaquez Not available Not available Not available Lab CMP, serum or plasma 2024 025 [facility] (Lab), [address] [place], [address], 06/01/2025 15:25:03 microalbu min, urine 2024 025 [facility] (Lab), [address] [place], [address], 05/31/2025 20:38:39 glycohemo globin, total, blood 2024 025 [facility] (Lab), [address] [place], [address], 05/31/2025 22:02:15 lipid panel, serum 2024 025 [facility] (Lab), [address] [place], [address], 06/01/2025 15:25:07 TSH, serum or plasma 2024 025 [facility] (Lab), [address] [place], [address], 06/01/2025 15:43:04 CBC 2024 025 [facility] (Lab), [address] [place], [address], 05/31/2025 20:04:56 Referral None recorded. Procedures None recorded. Surgeries None recorded. Imaging MAMMO, screening , digital, bilateral 2024 025 [email or web address] [facility] ([facility]), [address] [place], [address], 03/31/2025 10:02:26 Medication Orders Mobic 15 mg tablet 2024 025 [email or web address] [id number], [address], [place], [id number], 05/31/2025 14:15:45 Patient TargetsNo targets recorded. Patient InstructionsNo instructions recorded. Reason for Referral None Reported. Results Created Date Observation Date Name Description Value Unit Range Abnormal Flag Note LastModifiedBy Organization Detail LastModifiedTime 05/31/2005/31/2025 CBC W/O DIFFE RENTI AL white blood cells 6.8 x10'3 /uL 4.2-10 .8 Not Available [facility] (Lab) [address] [place], [address], 05/31/2025 20:04:56 05/31/2005/31/2025 CBC W/O DIFFE RENTI AL red blood cells 4.72 x10'6 /uL 3.80-5 .20 Not Available [facility] (Lab) [address] [place], [address], 05/31/2025 20:04:56 05/31/20 25 05/31/2025 CBC W/O DIFFE RENTI AL hemoglobin 14.6 g/dL 12.0-1 5.6 Not Available [facility] (Lab) [address] [place], [address], 05/31/2025 20:04:56 05/31/20 25 05/31/2025 CBC W/O DIFFE RENTI AL hematocrit 44.3 % 35.7-4 5.7 Not Available [facility] (Lab) [address] [place], [address], 05/31/2025 20:04:56 05/31/20 25 05/31/2025 CBC W/O DIFFE RENTI AL mean red cell volume 93.9 fL 82.0-9 9.0 Not Available [facility] (Lab) [address] [place], [address], 05/31/2025 20:04:56 05/31/20 25 05/31/2025 CBC W/O DIFFE RENTI AL mean red cell hemoglobin 30.9 pg 27.0-3 3.0 Not Available [facility] (Lab) [address] [place], [address], 05/31/2025 20:04:56 05/31/20 25 05/31/2025 CBC W/O DIFFE RENTI AL mean RBC HGB concentratio n 33.0 g/dL 31.0-3 6.0 Not Available [facility] (Lab) [address] [place], [address], 05/31/2025 20:04:56 05/31/20 25 05/31/2025 CBC W/O DIFFE RENTI AL red cell distribution width 12.9 % 11.8-1 5.5 Not Available [facility] (Lab) [address] [place], [address], 05/31/2025 20:04:56 05/31/20 25 05/31/2025 CBC W/O DIFFE RENTI AL platelets 325 x10'3 /uL 150-40 0 Not Available [facility] (Lab) [address] [place], [address], 05/31/2025 20:04:56 05/31/20 25 05/31/2025 CBC W/O DIFFE RENTI AL mean platelet volume 10.7 fL 9.0-12 .4 Not Available [facility] (Lab) [address] [place], [address], 05/31/2025 20:04:56 05/31/20 25 05/31/2025 MICRO ALBUM IN RANDO M URINE microalbumin , urine 7.4 mg/L 0.0-16 .6 Not Available [facility] (Lab) [address] [place], [address], 05/31/2025 20:38:39 05/31/20 25 05/31/2025 HEMOG LOBIN A1C HA1C 7.6 % 4.0-6. 0 high Diabe jose Scree nona Crite gerry: <5.7% Consi stent with absen ce of diabe jose 5.7-6 .4% Consi stent with incre ased risk for diabe jose (pred iabet es) >OR=6 .5% Consi stent with diabe jose REFER ENCE: Diabe jose Care 2016, 39(Spring ppl.1 ):s13 -s22 Not Available [facility] (Lab) [address] [place], [address], 05/31/2025 22:02:15 05/31/20 25 06/01/2025 COMPR EHENS FRANCESCA METAB OLIC PANEL sodium 137 mmol/ L 137-14 5 Not Available [facility] (Lab) [address] [place], [address], 06/01/2025 15:25:03 05/31/20 25 06/01/2025 COMPR EHENS FRANCESCA METAB OLIC PANEL potassium 5.0 mmol/ L 3.5-5. 1 Not Available [facility] (Lab) [address] [place], [address], 06/01/2025 15:25:03 05/31/20 25 06/01/2025 COMPR EHENS FRANCESCA METAB OLIC PANEL chloride 99 mmol/ L 98-107 Not Available [facility] (Lab) [address] [place], [address], 06/01/2025 15:25:03 05/31/20 25 06/01/2025 COMPR EHENS FRANCESCA METAB OLIC PANEL carbon dioxide 30 mmol/ L 22-30 Not Available [facility] (Lab) [address] [place], [address], 06/01/2025 15:25:03 05/31/20 25 06/01/2025 COMPR EHENS FRANCESCA METAB OLIC PANEL anion gap 13.0 mmol/ L 14-22 low Not Available [facility] (Lab) [address] [place], [address], 06/01/2025 15:25:03 05/31/20 25 06/01/2025 COMPR EHENS FRANCESCA METAB OLIC PANEL glucose 152 mg/dL 70-99 high Not Available [facility] (Lab) [address] [place], [address], 06/01/2025 15:25:03 05/31/20 25 06/01/2025 COMPR EHENS FRANCESCA METAB OLIC PANEL BUN 21 mg/dL 8-19 high Not Available [facility] (Lab) [address] [place], [address], 06/01/2025 15:25:03 05/31/20 25 06/01/2025 COMPR EHENS FRANCESCA METAB OLIC PANEL creatinine 0.93 mg/dL 0.66-1 .25 Not Available [facility] (Lab) [address] [place], [address], 06/01/2025 15:25:03 05/31/20 25 06/01/2025 COMPR EHENS FRANCESCA METAB OLIC PANEL GFR >60 Refer ence Range : [place] ge GFR Healt hy Adult : >60 mL/mi n/1.7 3 m2 Chron ic Kidne y Disea se: 15-60 mL/mi n/1.7 3 m2 Kidne y Failu re: <15/m L/min /1.73 m2 www.n iddk. nih.g ov The MDRD study equat ion has not been valid ated in child tee <18 years of age; pregn ant women ; the elder ly >85 years of age; or in some racia l or ethni c subgr oups, such as Hispa nics. Outsi de the valid ated bhavya eters , estim ated GFR is less accur ate, requi ring clini juan judgm ent on a case- by-ca se basis . Clini juan inter preta tion for other races and ages must be made by the clini johnny. The MDRD study equat ion has not been valid ated for the evalu ation of serum creat inine relat ed to nutri tony l statu s or medic ation usage . For perso ns <18 years of age, a pedia tric GFR calcu lator is avail able on the [facility] websi te: https :[email or web address] lebron.neida hutchinson.o rg/pr neftalyess ional s/kdo qi/gf r_cal culat or Not Available [facility] (Lab) [address] [place], [address], 06/01/2025 15:25:03 05/31/20 25 06/01/2025 COMPR EHENS FRANCESCA METAB OLIC PANEL alkaline phosphatase 83 U/L 38-126 Not Available [facility] (Lab) [address] [place], [address], 06/01/2025 15:25:03 05/31/20 25 06/01/2025 COMPR EHENS FRANCESCA METAB OLIC PANEL alanine aminotransfe rase 32 U/L 0-35 Not Available [facility] (Lab) [address] [place], [address], 06/01/2025 15:25:03 05/31/20 25 06/01/2025 COMPR EHENS FRANCESCA METAB OLIC PANEL aspartate aminotransfe rase 28 U/L 15-37 Not Available [facility] (Lab) [address] [place], [address], 06/01/2025 15:25:03 05/31/20 25 06/01/2025 COMPR EHENS FRANCESCA METAB OLIC PANEL bilirubin, total 0.40 mg/dL 0.20-1 .30 Not Available [facility] (Lab) [address] [place], [address], 06/01/2025 15:25:03 05/31/20 25 06/01/2025 COMPR EHENS FRANCESCA METAB OLIC PANEL calcium 10.2 mg/dL 8.4-10 .2 Not Available [facility] (Lab) [address] [place], [address], 06/01/2025 15:25:03 05/31/20 25 06/01/2025 COMPR EHENS FRANCESCA METAB OLIC PANEL total protein 7.1 g/dL 6.3-8. 2 Not Available [facility] (Lab) [address] [place], [address], 06/01/2025 15:25:03 05/31/20 25 06/01/2025 COMPR EHENS FRANCESCA METAB OLIC PANEL albumin 4.6 g/dL 3.4-5. 0 Not Available [facility] (Lab) [address] [place], [address], 06/01/2025 15:25:03 05/31/20 25 06/01/2025 COMPR EHENS FRANCESCA METAB OLIC PANEL globulin 2.5 g/dL 2.6-4. 2 low Not Available [facility] (Lab) [address] [place], [address], 06/01/2025 15:25:03 05/31/20 25 06/01/2025 COMPR EHENS FRANCESCA METAB OLIC PANEL A/G ratio 1.8 ratio 1.0-2. 0 Not Available [facility] (Lab) [address] [place], [address], 06/01/2025 15:25:03 05/31/20 25 06/01/2025 LIPID PANEL cholesterol 183 mg/dL 140-19 9 NIH DAVID NSUS RECOM MENDA TION FOR AUDRA STERO L: ADULT CHILD LOW RISK: <200 <170 BORDE RLINE : <200- 239 ----- HIGH RISK: >240 >200 Not Available [facility] (Lab) [address] [place], [address], 06/01/2025 15:25:07 05/31/20 25 06/01/2025 LIPID PANEL triglyceride s 146 mg/dL 0-150 NIH DAVID NSUS REPOR T RECOM MENDA TION FOR TRIGL YCERI FABI: ADULT CHILD LOW RISK: <150 ----- BODER LINE: 150-1 99 ----- HIGH RISK: >200 ----- Not Available [facility] (Lab) [address] [place], [address], 06/01/2025 15:25:07 05/31/20 25 06/01/2025 LIPID PANEL HDL cholesterol 53 mg/dL 40- Not Available [facility] (Lab) [address] [place], [address], 06/01/2025 15:25:07 05/31/20 25 06/01/2025 LIPID PANEL LDL cholesterol, calculated 101 mg/dL 0-130 NIH DAVID NSUS REPOR T RECOM MENDA TIONS FOR LDL: ADULT CHILD LOW RISK <130 <110 (OPTI MAL LDL) <100 ----- BORDE RLINE : 130-1 59 ----- HIGH RISK: >160 >130 A TRIGL YCERI DE RESUL T >400 INVAL IDATE S THE CALCU LATIO N FOR LDL FRACT IONAT ION - THE LDL RESUL T WILL NOT BE REPOR TAMMIE. Not Available [facility] (Lab) [address] [place], [address], 06/01/2025 15:25:07 05/31/20 25 06/01/2025 TSH W/REF PENNY FT4 TSH with reflex free T4 0.814 uIU/m L 0.465- 4.680 Not Available [facility] (Lab) [address] [place], [address], 06/01/2025 15:43:04 02/22/20 25 02/18/2025 MRI, morteza sharpe, w/o contr ast No observ ation record ed. [email or web address] [facility] [address], [place], [address], 02/23/2025 08:13:34 Result Notes None recorded. Problems Name Problem SNOMED Code Status Onset Date Resolution Date Notes Provider Name and Address Organization Details Recorded Time Hypertensi ve disorder 58777523 Active Not Available [facility] 4 01:36:26 Neuropathy 512512000 Active Not Available [facility] 4 01:36:26 Menorrhagi a 827835638 Active Not Available [facility] 4 01:36:26 Hypothyroi dism 68975533 Active Not Available [facility] 4 01:36:26 Tinea capitis 9675199 Active Not Available [facility] 4 01:36:27 Hyperlipid emia 35960722 Active Not Available [facility] 4 01:36:27 Diabetes mellitus 97020847 Active Not Available [facility] 4 01:36:27 Mixed anxiety and depressive disorder 605523881 Active 2022 Not Available [facility] 4 01:36:26 Vitamin D below reference range 829517750 Active 2023 GIOVANNA Knox [address] [facility], [place], [address] , [facility] 4 16:01:39 Periodic limb movement disorder 307048912 Active 2023 Gerard Taveras MD [address], [address], [place], [address] , [facility] 4 11:54:45 Obstructiv e sleep apnea syndrome 69676315 Active 2023 Gerard Taveras MD [address], [address], [place], [address] , [facility] 4 11:55:27 Iron deficiency 01952993 Active 2023 Gerard Taveras MD [address], [address], [place], [address] , [facility] [employer] [facility] 4 15:04:09 Vitamin B12 deficiency (non anemic) 89745510 Active 2023 Gerard Taveras MD [address], [address], [place], [address] , [facility] [employer] [facility] 4 15:04:18 Rupture of rotator cuff of right shoulder 4097982722167 9103 Active 2024 GIOVANNA Knox [address], [address], [place], [address] , [facility] 5 16:24:06 Nausea 830203475 Active 2024 GIOVANNA Knox [address], [address], [place], [address] , [facility] 5 16:24:48 Pain of right shoulder joint 6024241657503 9100 Active 2024 AVERY Bautista, [facility] 5 11:32:47 Osteoarthr itis of right acromiocla vicular joint 5826095336411 104 Active 2024 GIOVANNA Pollard [address], [address], [place], [address] , [facility] 5 12:02:13 Impingemen t syndrome of right shoulder region 4362934525607 02 Active 2024 GIOVANNA Pollard [address], [address], [place], [address] , [employer] [facility] [employer] 5 12:02:20 Tendinitis of right rotator cuff 2413229636285 9104 Active 2024 GIOVANNA Pollard [address], [address], [place], [address] , [employer] [facility] [employer] [facility] 5 12:02:33 Screening mammograph y Active 2024 GIOVANNA Knox [address], [address], [place], [address] , [employer] [facility] [employer] [facility] 5 16:03:29 Arthritis of right acromiocla vicular joint 2672526359751 104 Active 2024 Maame Madrid PA-C [address], [address], [place], [address] , [employer] 5 16:06:24 Notes:Medical History: Anxie ty/Depression Tinea capitis Rhinitis Bruxism Obesity with severe OSHS, HI = 31, 03/23/24, on CPAP c/o IVRC Hypothyroidism Hyperlipidemia Hypertension T2DM with neuropathy PLMD Iron deficiency Vit B12 deficiency Vit D deficiency Low back pain Procedure History: T&A 1980 Appendectomy 1989 1997 Tubal ligation 1997 Left CTS release surgery 2004 Right CTS release surgery 2005 Bilateral knee arthroscopies 2009 Cholecystectomy 2018 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 Procedures Surgical History Date Name Laterality Status Provider Name and Address Organization Details Recorded Time Appendectomy completed HAIDER Mota Riana [place] [employer] 12/24/2023 15:41:00 Carpal tunnel surgery completed HAIDER Mota [place] [employer] [facility] 12/24/2023 15:41:11 Gallbladder Surgery completed HAIDER Mota [place] [employer] [facility] 12/24/2023 15:41:24 Tubal Ligation [facility] [employer] [facility] 12/24/2023 15:41:31 section completed Cornelius Ureña [place] [facility] [employer] [facility] 12/24/2023 15:41:48 Knee arthroscopy/surge ry completed Jesica Ureña [place] [facility] 12/24/2023 15:42:09 Imaging Results None recorded. Procedure Notes None recorded. Medical Equipment None [...] TAKE 1 TABLET BY MOUTH EVERY DAY active Not Available [...] completed Not Available Not Available Not Available meloxicam 15 mg tablet TAKE 1 TABLET BY MOUTH EVERY DAY 2024 active Not Available Not Available Not Avai lable ondansetron HCl 4 mg tablet active Not [...] cyanocobala min (vit B-12) 1,000 mcg tablet TAKE 1 TABLET BY MOUTH TWICE WEEKLY active Not Available Not Available No t Available Accu-Chek Softclix Lancets U 1 LANCET TO [...] Available ondansetron 8 mg disintegrat ing tablet DISSOLVE 1 TABLET ON THE TONGUE TWICE DAILY FOR NAUSEA active Not Available Not Available No t Available amoxicillin 875 mg tablet TAKE 1 TABLET BY MOUTH THREE TIMES DAILY 12/24 completed Not Available Not Available Not Available ciprofloxac in 0.3 % eye drops INSTILL 1 DROP IN AFFECTED EYE(S) EVERY 4 HOURS FOR 7 DAYS. ADMINISTE R WHILE AWAKE 12/24 completed Not Available Not Available Not Available [employer] Test strips USE TO TEST BLOOD SUGAR EVERY DAY active Not Available Not Available No t Available benzonatate 100 mg capsule TK 1 [...] with needle 1 mL 31 gauge x 04/08 completed Not Available Not Available Not Available lisinopril 5 mg tablet TK 1 T PO D 12/24 completed Not Available Not Available Not Available mupirocin 2 % topical ointment APPLY TOPICALLY TO THE AFFECTED AREA TWICE DAILY FOR 1 WEEK 05/31 completed Not Available Not Available Not Available [...] TAKE 1 TABLET BY MOUTH TWICE DAILY 03/28 completed Not Available Not Available Not Available spironolact one 50 mg tablet TAKE 1 [...] iron) tablet TAKE 1 TABLET BY MOUTH EVERY DAY active Not Available Not Available No t Available levothyroxi ne 150 mcg capsule Take 1 capsule every day by oral route. 2012 active Not Available Not Available Not Avai lable Easy Touch Lancing Device 12/25 completed Not Available Not Available Not Available Easy Touch Twist Lancets 28 gauge 12/25 completed Not Available Not Available Not Available Fluarix Quad 5055-3556 (PF) 60 mcg (15 mcg x 4)/0.5 mL IM syringe ADM 0.5ML UTD active Not Available Not Available No t Available Trulicity 1.5 mg/0.5 mL subcutaneou s pen injector ADMINISTE R 1.5 MG UNDER THE SKIN WEEKLY active Not Available Not Available No t Available Trulicity 0.75 mg/0.5 mL subcutaneou s pen injector 01/02 completed Not Available Not Available Not Available Dexcom G6 Sensor device REPLACE SENSOR EVERY 10 DAYS active Not Available Not Available No t Available Dexcom G6 Hairspring Fabrication Supervisor USE TO CHECK BLOOD SUGAR 01/11 completed Not Available Not Available Not Available Dexcom G6 Transmitter device CHANGE EVERY 90 DAYS active Not Available Not Available No t Available Omnipod Dash Pods (Gen 4) subcutaneou s cartridge CHANGE POD EVERY 2 DAYS 01/11 completed Not Available Not Available Not Available OneTouch Ultra2 Meter USE TO CHECK BLOOD SUGARS ONCE DAILY active Not Available Not Available No t Available Baqsimi 3 mg/actuatio n nasal spray [...] CHANGE POD EVERY 1 AND 1/2 DAYS 01/02 completed Not Available Not Available Not Available Mounjaro 2.5 mg/0.5 mL subcutaneou s pen injector Inject 2.5 mg every week by subcutane ous route for 30 days. 01/21 completed Not Available Not Available Not Available OneTouch UltraSoft 2 Lancet 30 gauge USE TO CHECK BLOOD SUGARS ONCE DAILY active Not Available Not Available No t Available Omnipod 5 G6-G7 Pods (Gen 5) subcutaneou s cartridge CHANGE EVERY 1.5 DAYS. active Not Available Not Available No t Available Vitals Date Recorded Body height Body mass index (BMI) Body weight Provider Name and Address Organization Details Last Updated DateTime 02/23/2025 165.1 cm 47.4 kg/m2 818452.83 g [employer] 02/23/2025 14:46:32 Date Recorded Body height Body mass index (BMI) Body weight Body temperature Heart rate Oxygen saturation Oxygen saturation in Arterial blood by Pulse oximetry Systolic And Diastolic Provider Name and Address Organization Details Last Updated DateTime 165.1 cm 48.3 kg/m2 400598. 79 g 97.3 [degF] 74 /min 96 % 96 % 128/76 mm[Hg] Valerie Schaffer [facility] [employer] 15:41:24 Date Recorded Body height Body mass index (BMI) Body weight Provider Name and Address Organization Details Last Updated DateTime 04/27/2025 165.1 cm 47.4 kg/m2 422697.83 g Novavax AB [employer] 04/27/2025 15:09:29 Date Recorded Body height Body mass index (BMI) Body weight Body temperature Heart rate Respiratory rate Oxygen saturation Oxygen saturation in Arterial blood by Pulse oximetry Systolic And Diastolic Provider Name and Address Organization Details Last Updated DateTime 165.1 cm 48 kg/m2 925227. 75 g 97 [degF] 78 /min 24 /min 97 % 97 % 116/58 mm[Hg] Tete Carbajal RN [facility] [employer] 14:19:16 Date Recorded Body height Body mass index (BMI) Body weight Provider Name and Address Organization Details Last Updated DateTime 06/01/2025 165.1 cm 47.4 kg/m2 826101.83 g Kristen Mendez Nohemi [facility] [employer] 06/01/2025 15:31:11 Social History Question Answer Notes LastModified by Organizat ion Details LastModified Time Tobacco Smoking Status Former Smoker [place], [place] [employer] [facility] [employer] 12/24/2023 15:40:36 What Is Your Level Of Caffeine Consumption? Occasional [email or web address] Information not available 12/24/2023 In The 14 Days Before Symptom Onset, Have You Had Close Contact With A Laboratory-confi rmed COVID-19 While That Case Was Ill? No Information not available 01/21/2024 In The 14 Days Before Symptom Onset, Have You Had Close Contact With A Person Who Is Under Investigation For COVID-19 While That Person Was Ill? No Information not available 01/21/2024 What Type Of Diet Are You Following? CARBOHYDRATE Information not available 01/21/2024 Do You Have An Electrostatic Air Filter? No Information not available 01/21/2024 Have There Been Any Changes To Your Family Or Social Situation? Yes [email or web address] Information not available 05/31/2025 When Did You Quit Smoking? 11-15yearssincelast cigarette [email or web address] Information not available 12/24/2023 Do You Have A Humidifier? No Information not available 01/21/2024 Where Do You Live? SingleLevelHouse Information not available 01/21/2024 Are You Following A Low Salt Diet? No Information not available 01/21/2024 Do You Have Moisture Problems In Your Home? No Information not available 01/21/2024 What Was The Date Of Your Most Recent Tobacco Screening? 01/26/2025 [email or web address] Information not available 01/26/2025 How Many Children Do You Have? 2 Information not available 04/07/2024 What Is Your Current Pack Years? 20-29packyears [email or web address] Information not available 12/24/2023 Do You Have Any Pets? Yes Information not available 01/21/2024 What Is Your Relationship Status? Information not available 01/21/2024 Do You Use Your Seat Belt Or Car Seat Routinely? Yes [email or web address] Information not available 12/24/2023 Do You Have Smoke And Carbon Monoxide Detectors In Your Home? Yes Information not available 01/21/2024 Are You Passively Exposed To Smoke? No Information not available 01/21/2024 Do You Participate In Social Media? Yes [email or web address] Information not available 12/24/2023 Do You Use Sunscreen Routinely? No Information not available 01/21/2024 How Many Years Have You Smoked Tobacco? 24 [email or web address] Information not available 12/24/2023 Have You Recently Traveled Abroad? No Information not available 01/21/2024 Do You Have Any Dietary Restrictions? Yes Information not available 01/21/2024 Sex: Unknown Functional Status Question Answer Note LastModified by Organizat ion Details LastModified Time Do you use any illicit or recreational drugs? No [email or web address] Information not available 12/24/2023 Do you or have you ever used any other forms of tobacco or nicotine? No [email or web address] Information not available 12/24/2023 What is your level of alcohol consumption? None [email or web address] Information not available 12/24/2023 Are you currently employed? No Information not available 04/07/2024 Have you been exposed to chemicals or toxins? not that aware of Information not available 01/21/2024 What is your occupation? none [id number] [email or web address] Information not available 01/22/2023 What is your exercise level? Occasional Information not available 01/21/2024 Mental Status Question Answer Note LastModified by Organization D etails LastModified Time Do you feel stressed (tense, restless, nervous, or anxious, or unable to sleep at night)? [id number] [email or web address] Information not available 12/24/2023 Family History Relationship Description Onset Age of this Age Resolved Age Notes LastModified by Organization Details LastModified Time Father Diabetes mellitus [email or web address] Not available 2023 15:24:02 Father Chronic lung disease [email or web address] Not available 2023 15:26:08 Father [employer] workers[employer] pneum[employer] is [email or web address] Not available 2023 [...] SNOMED-CT Code Diagnosis ICD10 Code Diagnosis Note [id number] Zia Medellin MD [facility] Tawanna mahmood [address] [place] [address] [place] [address] 12/25/2021 00:00:00 12/25/2021 21:51:36 [id number] Zia Medellin MD [facility] Tawanna llnelson [address] [place] [address] [place] [address] 05/15/2022 00:00:00 05/15/2022 19:56:03 [id number] Zia Medellin MD [facility] Tawanna llnelson [address] [place] [address] [place] [address] 12/24/2023 15:06:22 12/24/2023 16:11:01 Insomnia 297038185 G47.00 Type 2 christina betes mellitus 00482088 E11.9 Seborrheic dermatitis of scalp 096406400 L21.0 Eczema 19742047 L30.9 behind ears Screening for malignant neoplasm of breast 795712719 Z12.39 Hyperlipidemia 49085068 E78.5 Vitamin D below reference range 924890654 E55.9 Snoring 78377774 R06.83 Depressive disorder 3548 9007 F32.A Hypertensive disorder 38 083793 I10 Hypothyroidism 01716706 E03.9 Low back pain 355255852 M54.50 Neuropathy 033680181 G62 .9 [id number] Gerard Taveras MD [facility] [address] [place] [address] 01/21/2024 15:11:51 01/22/2024 11:38:41 Sleep apnea 94071744 G47.30 G47.33 G47.36 G47.61 [id number] Gerard Taveras MD [place] [address] 04/07/2024 11:23:25 04/08/2024 08:42:52 Periodic limb movement disorder 341892381 G47.61 D50.8 E83.42 Obstructiv e sleep apnea syndrome 42499082 G47.33 [id number] Gerard Taveras MD [place] [address] 04/28/2024 14:04:55 04/29/2024 09:11:05 Obstructive sleep apnea syndrome 97735256 G47.33 Iron deficiency 67656849 E61.1 Vitamin B1 2 deficiency (non anemic) 68814596 E53.8 [id number] Gerard Taveras MD [place] [address] 07/28/2024 14:28:12 07/30/2024 10:20:28 Obstructive sleep apnea syndrome 40065918 G47.33 Iron deficiency 34077390 E61.1 Vitamin B1 2 deficiency (non anemic) 70531425 E53.8 [id number] Deep Vaughn MD [facility] [address] [facility], [place] [address] 09/27/2024 15:45:32 09/27/2024 16:38:13 Dysuria 90106569 R30.0 Diabetes mellitus 752668 09 E11.9 Neuropathy 964683871 G62 .9 Screening mammography 24 022906 Z12.31 Nausea 702856299 R11.0 [id number] Gerard Taveras MD [place] [address] 0 10/27/2024 14:19:19 10/28/2024 16:36:38 Obstructive sleep apnea syndrome 41826390 G47.33 Iron deficiency 37981516 E61.1 Vitamin B1 2 deficiency (non anemic) 65585729 E53.8 [id number] Deep Vaughn MD [facility] [address] [place] [address] 12/28/2024 15:45:01 12/28/2024 16:40:08 Rupture of rotator cuff of right shoulder 2742449723 4545486 M75.101 Nausea 431179400 R11.0 Diabetes mellitus 720738 09 E11.9 Hyperlipidemia 09255934 E78.5 Hypertensive disorder 38 603965 I10 Hypothyroidism 05760884 E03.9 Impingemen t syndrome of right shoulder region 5118336610 42083 M75.41 Obstructiv e sleep apnea syndrome 23424522 G47.33 [id number] Kobe Mclaughlin MD [facility] [address] [place] [address] 12/31/2024 11:07:31 12/31/2024 11:57:16 Pain of right shoulder joint 5258387362 8732942 M25.511 Osteoarthr itis of right acromioclavicular joint 5748265289 840023 M19.011 Impingemen t syndrome of right shoulder region 9428754434 68513 M75.41 Tendinitis of right rotator cuff 8037531172 3018018 M67.166 [id number] Gerard Taveras MD [facility] Pulmonolo [address] [address] 01/26/2025 14:27:55 01/26/2025 16:58:45 Obstructive sleep apnea syndrome 49996122 G47.33 Iron deficiency 12234823 E61.1 Vitamin B1 2 deficiency (non anemic) 98958804 E53.8 [id number] Kobe Mclaughlin MD [facility] [address] [place] [address] 01/27/2025 15:18:38 01/27/2025 15:46:53 Osteoarthritis of right acromioclavicular joint 3191538354 151352 M19.011 Rupture of rotator cuff of right shoulder 8541405518 8768846 M75.101 Pain of ri ght shoulder joint 1471792854 4863011 M25.511 Tendinitis of right rotator cuff 9684703581 9923150 M67.596 [id number] Kobe Mclaughlin MD [facility] [address] [place] [address] 02/23/2025 14:44:10 02/23/2025 15:04:47 Pain of right shoulder joint 8631823389 2019944 M25.511 Osteoarthr itis of right acromioclavicular joint 4096799922 620064 M19.011 Rupture of rotator cuff of right shoulder 5492140175 4217351 M75.101 Tendinitis of right rotator cuff 1850588048 7539992 M67.856 [id number] Deep Vaughn MD [address] [address] 03/28/2025 15:29:12 03/28/2025 16:10:32 Diabetes mellitus 01260687 E11.9 Screening mammography 24 293622 Z12.31 [id number] Kobe Mclaughlin MD [facility] [address] [place] [address] 04/27/2025 15:05:03 04/27/2025 15:33:24 Pain of right shoulder joint 4102210462 9988494 M25.511 Tendinitis of right rotator cuff 5974066257 3188996 M67.944 [id number] Irene Vyas NP [address] [address] 05/31/2025 14:03:09 05/31/2025 14:50:58 Diabetes mellitus 56694250 E11.9 Hypothyroidism 14894663 E03.9 Hyperlipidemia 72739088 E78.5 [id number] Kobe Mclaughlin MD [facility] [address] [place] [address] 06/01/2025 15:28:42 06/01/2025 15:49:44 Pain of right shoulder joint 6002152436 2740892 M25.511 Rupture of rotator cuff of right shoulder 2329343473 7868793 M75.101 Arthritis of right acromioclavicular joint 6506040076 436906 M19.011 Health Concerns Section Related Observation LastModified by Organization Detai ls LastModified Time None Recorded Concern Status LastModified by Organization Details LastModified Time None Recorded Advance Directives Directive None Recorded Payers Insurance Date Sequence Insurance Name Policy Number Policy Pulido Covered Member ID Pulido Member ID Guarantor Name 04/25/2025 1 [place] [facility] Tari Ledesma [id number] Tari Ledesma 04/25/2025 1 [facility] - DOS ON OR AFTER 21 (MEDICAID REPLACEMENT - HMO) Tari Ledesma [id number] Tari Ledesma 06/06/2025 1 [facility] - DOS ON OR AFTER 21 (MEDICAID REPLACEMENT - HMO) Tari Ledesma [id number] Tari Ledesma Notes Date Note Type Note Provider Name and Address Organization Details Recorded Time 03/28/2025 text/html follow up GIOVANNA Knox [address], [place], [address], [employer] 03/30/2025 16:47:04 05/31/2025 text/html here for surgica l clearance for shoulder surgery next week goes to endocrine has not had labs done recentlythinks her last ha1c was 7 Irene Vyas NP [address], [address], [place], [address], [employer] 05/31/2025 14:44:28 OBGyn Episode No OBEpisode recorded.
== END 2025-06-08 15:42 | disposition home or self-care (01) ==
PROVIDERS: Visit Provider Nurse Practitioner Family
DX: E07.9 Disorder of thyroid, unspecified (principal); R13.10 Dysphagia, unspecified
CPT/HCPCS: 76536